=== PATIENT | female | born 1960 | race Caucasian/White ===

== ENCOUNTER 2020-02-01 10:57 | Day surgery (SDC) | payer MEDICARE, OTHER ==
[~2020-02-01] VITALS: Ht 170.2 cm; Wt 80.0 kg
[~2020-02-01 10:57] MED LIST: ALENDRONATE SOD70 MG PO; CALCIUM600 MG PO; CEFDINIR300 MG PO; DOXEPIN HCL100 MG PO; FEOSOL325 MG PO; FOLIC ACID1 MG PO; FUROSEMIDE40 MG PO; GALZIN50 MG PO; LEVOTHYROXINE112 MCG PO; LIOTHYRONINE SO5 MCG PO; MAGNESIUM400 MG PO; POTASSIUM CHLO20 ME1 PO; PULMICORT FLEX90 MCG INH; SUPER B-50 COM1 EACH PO; VENTOLIN HFA18 GM INH; VITAMIN B-121000 MC3 PO; VITAMIN C500 MG PO; VITAMIN D3125 MC1 PO
--- NOTE | 2020-02-01 12:50 | NUR ---
02/01/20 1250 [place] ALERT AND AWAKE, HOB ELEVATED. DENIES C/O AT THIS TIME.
--- NOTE | 2020-02-08 16:39 | PATH ---
[facility] [address] [facility] [place], [place] [address] Signed THIS IS AN ADDENDUM REPORT SPECIMEN(S): A BONE MARROW - CORE SPECIMEN(S): B BONE MARROW - ASPIRATION SPECIMEN(S): C COMPREHENSIVE FLOW CYTOMETRY ONLY, BM EDTA ASP CLINICAL HISTORY: 59-year-old female with history of hypoplastic anemia, chronic kidney disease, gastric bypass. Evaluate nutritional deficiency vs. MDS. D50.9 (iron deficiency anemia, unspecified), D61.9 (aplastic anemia, unspecified) DIAGNOSIS SUMMARY: A. Peripheral blood - Normochromic normocytic anemia. B. Bone marrow, left, aspiration and core biopsy: - Normocellular bone marrow with dysmegakaryopoiesis. - Decreased storage iron. - Negative for reticulin fibrosis. - See Diagnostic Comment. DIAGNOSTIC COMMENT: Evaluation of this bone marrow specimen reveals a normocellular bone marrow with an estimated overall cellularity of 40%. Megakaryocytes are mildly increased and include frequent small, hypolobated, and monolobated forms. There is no increase in blasts, and flow cytometry also detected no increase in blasts or abnormal lymphoid populations. Although myelodysplasia is a possibility, other considerations for this patient's anemia include nutritional deficiencies, infection, drug/toxin effect, and immune disorders. The iron stains show decreased storage iron, and correlation with iron studies is suggested. Cytogenetic analysis and MDS FISH analysis are pending, and the results will be issued by addendum. AIC:slh:smn:C2NR PERIPHERAL BLOOD: HEMOGRAM ([facility], 02/01/2020): WBC 8.6 K/uL, RBC 3.05 M/uL, HGB 9.1 g/dL, HCT 29.1%, MCV 95.3 fL, MCH 30 pg, MCHC 31 g/dL, RDW 17.2%, PLT 285 K/uL. MANUAL DIFFERENTIAL COUNT: Segmented neutrophils 61%, band neutrophils 2%, lymphocytes 22%, monocytes 14%, basophils 1%. PATIENT NAME: DEVORAH MCDERMOTT PATHOLOGY DATE OF : 56 REPORT #: [id number] PHYSICIAN: THOMAS PATHOLOGY PCP: SANTHOSH DAS REPORT IS CONFIDENTIAL AND NOT TO BE RELEASED WITHOUT AUTHORIZATION [facility] [address] [facility] [place], [place] [address] Signed The red blood cells are decreased in number and are normochromic and normocytic with anisocytosis. Scattered macrocytes, ovalocytes, microcytes, and a few target cells are identified. The white blood cells are present in normal number and are morphologically unremarkable. Circulating blasts are not identified. Platelets are present in normal number and morphology. BONE MARROW: BONE MARROW ASPIRATE SMEARS: The aspirate smears contain multiple cellular particles for evaluation. The erythroid precursors mature normoblastically with rare nuclear irregularity. The granulocytic precursors mature to segmented forms without dyspoiesis, and blasts are not increased. Megakaryocytes demonstrate variable morphology and include frequent small forms. Hypolobated and monolobated megakaryocytes are increased. BONE MARROW DIFFERENTIAL COUNT: Promyelocytes 2%, myelocytes 18%, metamyelocytes 16%, band neutrophils 14%, segmented neutrophils 11%, monocytes 5%, eosinophils 3%, lymphocytes 4%, plasma cells 2%, erythroid precursors 25%, zfpuwdl-lc-paaobnozy ratio 2.8:1. BONE MARROW CORE BIOPSY/ASPIRATE CELL BLOCK: The core biopsy reveals variable cellularity ranging from 20-60% and an estimated overall cellularity of 40%. The megakaryocytes show variable morphology and include scattered small and hypolobated and monolobated forms. The clot section contains similar particles in a background of blood clot. SPECIAL STAINS: - Iron (aspirate smear): Decreased storage iron, grade 0-1 of 4; negative for ring sideroblasts. - Iron (block B1): Negative. - Reticulin (block A1): Negative for reticulin fibrosis. The special stain controls react appropriately. IMMUNOHISTOCHEMICAL STAINS (block A1): - CD117: Scattered positive cells. - CD71: Highlights erythroid precursors with preserved colony architecture. - Myeloperoxidase: Many granulocytic precursors positive. - Factor VIII: Highlights mildly increased megakaryocytes with focal clustering and frequent small forms. AIC:slh:smn FLOW CYTOMETRY: Bone marrow, flow cytometry: - No increase in EZ92-fzcdhfkk blasts. PATIENT NAME: DEVORAH MCDERMOTT PATHOLOGY DATE OF : 56 REPORT #: [id number] PHYSICIAN: THOMAS PATHOLOGY PCP: SANTHOSH DAS REPORT IS CONFIDENTIAL AND NOT TO BE RELEASED WITHOUT AUTHORIZATION [address] [address] Signed - No monoclonal B-cell or aberrant T-cell population identified. - See Comment. COMMENT: Flow cytometry of this bone marrow specimen reveals no increase in CW09-zoixtovu blasts or immunophenotypic evidence of a non-Hodgkin lymphoid neoplasm. Final interpretation of these results requires correlation with morphologic and clinical findings. [facility] FLOW CYTOMETRY ANALYSIS: FLOW DIFFERENTIAL (% Total CD45 vs. SSC gating): Myeloid 75%; Lymphoid 10%; Monocyte 3%; Dim CD45/Blast: 1.7%. Cell Count: 6.6 x 10*3/uL. POPULATION ANALYSIS: BLASTS: Analysis of the dim CD45 gate demonstrates 1.6% myeloblasts by CD34/CD117. 0.7% hematogones are detected. LYMPHOID CELLS: The lymphocyte gate comprises 10% of total events and includes 77% T-cells with a CD4:CD8 ratio of 1.7:1 and normal rees T-cell antigen expression. 12% of lymphocytes are polyclonal B-cells with a kappa:lambda ratio of 1.6:1. The remainders are NK-cells. MYELOID CELLS: The myeloid population comprises 75% of the total events. No aberrant immunophenotypic expression is detected. MONOCYTES: The monocyte population comprises 3% of the total events. Monocytes are not increased. No aberrant immunophenotypic expression is detected. PLASMA CELLS: 0.9% plasma cells are detected in the screening gate neg-dimCD45/CD38. Plasma cells are CD45 dim and positive for CD19. ANTIBODIES USED: KAPPA, LAMBDA, CD20, CD10, CD19, CD23, CD38, FMC7, CD16, CD56, CD8, CD5, CD2, CD4, CD7, CD3, CD14, CD33, CD13, HLADR, CD34, CD117, CD15, CD45. TOTAL ANTIBODIES USED: 24. JNB FINAL DIAGNOSIS PERFORMED BY: Jesusita Horvath MD, Pathologist Feb 02 2020 1:41PM CYTOGENETICS: Pending, to be reported by addendum. FISH ANALYSIS: Pending, to be reported by addendum. GROSS DESCRIPTION: A. The specimen, labeled "Maribel, bone core," is received in formalin and consists of a single weldon, trabecular bone core fragment measuring 2.7 cm in PATIENT NAME: DEVORAH MCDERMOTT PATHOLOGY DATE OF : 56 REPORT #: [id number] PHYSICIAN: THOMAS PATHOLOGY PCP: SANTHOSH DAS REPORT IS CONFIDENTIAL AND NOT TO BE RELEASED WITHOUT AUTHORIZATION [facility] [address] [place], [place] [address] Signed greatest dimension. It is submitted in cassette (A1) following decalcification in Immunocal for 1.5 hours. B. The specimen, labeled "Maribel, clot," is received in formalin and consists of a 1.3 x 1.2 x 0.1 cm aggregate of blood clot. It is submitted entirely in cassette (B1). TN (under the direct supervision of a pathologist) The Gross Description was prepared using a voice recognition system. The report was reviewed for accuracy; however, sound-alike word errors, addition and/or deletions may occur. If there is any question about this report, please contact Client Services. ADDITIONAL NOTES: This test was developed and its performance characteristics determined by [facility]. It has not been cleared or approved by the US Food and Drug Administration. The FDA does not require this test to go through premarket FDA review. This test is used for clinical purposes. It should not be regarded as investigational or for research. This laboratory is certified under the Clinical Laboratory Improvement Amendments (CLIA) as qualified to perform high complexity clinical laboratory testing. Immunohistochemical and/or in situ hybridization studies were performed on this case with the appropriate positive controls that react as expected. This test was developed and its performance characteristics determined by [facility]. It has not been cleared or approved by the U.S. Food and Drug Administration. The FDA has determined that such clearance or approval is not necessary. This test is used for clinical purposes. It should not be regarded as investigational or for research. [facility] is certified under the Clinical Laboratory Improvement Amendments of 1988 (CLIA) as qualified to perform high complexity clinical laboratory testing. In this case, certain antibodies were performed by both immunohistochemistry and flow cytometry analysis because flow cytometry analysis did not fully explain all the light microscopic findings. Immunohistochemistry aided in the analysis. Both methods are deemed medically necessary in this case. PERFORMING LABORATORY: The technical component of flow cytometry was performed by [facility], [address] [place] [address] (Inspector Missile: Saulo Farris D.O.; CLIA#: [id number]). PATIENT NAME: DEVORAH MCDERMOTT PATHOLOGY DATE OF : 56 REPORT #: [id number] PHYSICIAN: THOMAS ANGELES PCP: SANTHOSH DAS REPORT IS CONFIDENTIAL AND NOT TO BE RELEASED WITHOUT AUTHORIZATION [address] [address] Signed Professional interpretation was performed by [facility], [facility], [address] [place] [place] [address] (Inspector Missile: Marino Richards M.D.; CLIA#: [id number]). The technical component was performed by [facility], [address] [place] [address] (Inspector Missile: Saulo Farris D.O.; CLIA#: [id number]). Professional interpretation was performed by [facility], [facility], [address] [place] [address] (Inspector Missile: Marino Richards M.D.; CLIA#: [id number]). IMAGES: [id number]: [id number] A: [id number] REASON FOR ADDENDUM: To add results of additional testing. Bone marrow aspirate, FISH (fluorescence in situ hybridization) Result: Normal (MDS panel) Interpretation: - These findings reveal no evidence of an aberrant cell clone with gains or losses of chromosomes 5q, 7q, 8, 17p and 20q at the sensitivity level of this analysis. - In order to rule out the presence of loss of heterozygosity regions (CHARO/UPD) or small deletions of 5q, SNP microarray analysis may be considered (please contact [facility] for add-on testing). - Clinical and hematopathologic correlation is required. Interphase FISH (fluorescence in situ hybridization) was performed to assess this specimen for the presence of cytogenetic aberrations in the non-dividing cell population. Hybridization was performed using the EGR1/5p15.31 (chromosome 5), 7q22/7q31 (chromosome 7), D8Z2 (chromosome 8), TP53/D17Z1 (17p), and [id number] (20q) probe sets to assess this sample for the presence of monosomy 5 and 7, deletion of 5q, 7q, 17p or 20q and trisomy 8, all common cytogenetic aberrations in patients with myeloid diseases. A total of 200 interphase cells were analyzed for each probe; the analyses fell within normal limits for this specimen type. 02/06/20 12:15 FISH Analysis Summary: Number of Cells Analyzed: 200 Cells Analyzed: Interphase PATIENT NAME: DEVORAH MCDERMOTT PATHOLOGY DATE OF : 56 REPORT #: [id number] PHYSICIAN: THOMAS ANGELES PCP: SANTHOSH DAS REPORT IS CONFIDENTIAL AND NOT TO BE RELEASED WITHOUT AUTHORIZATION [facility] [address] [place] [address] [place], [place] [address] Signed Probes Utilized: EGR1,5p15.31, P2F834,I2V6524, X66E700/MYBL2+D8Z2, TP53-P Source and Lot Number: [employer], [id number], [id number], [id number], [id number] Control Probe Utilized: database The technical and professional components of the FISH study were performed at [facility]. ([place], [place], case #[id number]). Detailed report is kept on file. To add results of additional testing. Bone marrow aspirate, CYTOGENETIC ANALYSIS Result: 46,XX[20] Normal female karyotype Interpretation: Twenty normal cells were observed. There was no evidence of any chromosome abnormality within the limits of this study. Cytogenetic Analysis Summary: Number of Cells Imaged and Analyzed: 20 Number of Cultures used for Analysis: 2 Number of Karyograms: 5 Banding Level: 350-375 Extra Cells Analyzed /Scored: 0 Banding Method: GTW/G The technical and professional components of the cytogenetics analysis were performed at [facility]. ([place], [place], case #[id number]). Detailed report is kept on file. Diagnostician: Jesusita Horvath MD Pathologist Electronically Signed 02/08/2020 Copies: ~ PATIENT NAME: DEVORAH MCDERMOTT PATHOLOGY DATE OF : 56 REPORT #: [id number] PHYSICIAN: THOMAS PATHOLOGY PCP: SANTHOSH DAS REPORT IS CONFIDENTIAL AND NOT TO BE RELEASED WITHOUT AUTHORIZATION
== END 2020-02-01 13:16 | disposition home or self-care (01) ==
LOC: OPS 10:57 → DS 10:57 → OPS 12:00 → DS 12:00 → OPS 13:16
PROVIDERS: ATTEND Specialist
PROC: 079T3ZX Drainage of Bone Marrow, Percutaneous Approach, Diagnostic (ICD-10-PCS; 2020-02-01)
PROC: 07DR3ZX Extraction of Iliac Bone Marrow, Percutaneous Approach, Diagnostic (ICD-10-PCS; principal; 2020-02-01 12:00)
DX: D46.9 Myelodysplastic syndrome, unspecified (principal); D50.9 Iron deficiency anemia, unspecified; E03.9 Hypothyroidism, unspecified; E55.9 Vitamin D deficiency, unspecified; G47.00 Insomnia, unspecified; F32.9 Major depressive disorder, single episode, unspecified; M81.0 Age-related osteoporosis without current pathological fracture; D61.9 Aplastic anemia, unspecified; Z98.84 Bariatric surgery status
CPT/HCPCS: 80053; 80500; 82525; 82668; 82728; 83540; 83615; 84238; 84466; 85025; 85045; 88184; 88185; 88305; 88311; 88313; 88341; 88342; 99153; G0500; J2250; J3010

== ENCOUNTER 2020-11-14 14:31 | Emergency (ER) | payer MEDICARE, OTHER ==
[~2020-11-14] VITALS: Ht 170.2 cm; Wt 74.4 kg
--- OUTSIDE RECORDS SUMMARY | 2020-11-14 14:44 | XMS ---
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 Care History Medical/Surgical 08/02/2019 [facility] - Patient is currently established with [facility]. If patient is seen in the ED during business hours. Please contact CHWs at [facility]. - Care Recommendation: If this patient has had 5 or more Emergency Department visits in the last 12 months.\T\nbsp; Patient will require education on the scope and purpose of the ED as an acute care provider not a Primary Care Provider and should not be utilized for chronic conditions.\T\nbsp; These are guidelines and the provider should exercise clinical judgment when providing care. 08/02/2019 [facility] Patient came into [facility] In [facility] for diagnosis; assessed by VIOLA Degroot, and sent to ED for further evaluation. [place] VISIT COUNT (12 MO.) 1 GARETH Perez TOTAL 1 NOTE: Visits indicate total known visits. ED/C VISIT TRACKING (12 MO.) 11/14/2020 14:32 [facility] [place] TYPE: Emergency COMPLAINT: - FLU SYMPTOMS, HEADACHE, DIZZY, NO TASTE/SMELL INPATIENT VISIT TRACKING (12 MO.) No inpatient visits to display in this time frame [email or web address]
== END 2020-11-14 17:38 | disposition home or self-care (01) ==
LOC: ED 14:31
DX: U07.1 COVID-19 (principal); J12.82 Pneumonia due to coronavirus disease 2019; E03.9 Hypothyroidism, unspecified; D64.9 Anemia, unspecified; Z88.0 Allergy status to penicillin; Z79.899 Other long term (current) drug therapy
CPT/HCPCS: 71045; 80053; 85025; 99285-25; M0243; Q0244

== ENCOUNTER 2020-11-16 14:15 | Inpatient (IN) | payer MEDICARE, OTHER ==
[~2020-11-16] VITALS: Ht 170.2 cm; Wt 77.6 kg
--- OUTSIDE RECORDS SUMMARY | 2020-11-16 14:22 | XMS ---
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 Events No recent Security Events currently on file CRITERIA MET - [facility] - 2 Visits in 30 Days - [facility] - Has Care Guidelines CARE PROVIDERS AFSIHN MARY Internal Medicine 08/02/2019-Current PHONE: [phone] CHANDLER DAS [facility] Current PHONE: [phone] Lazaro has no Care Guidelines for this patient. Care History Medical/Surgical 08/02/2019 [facility] - Patient is currently established with [facility]. If patient is seen in the ED during business hours. Please contact CHWs at [facility]. - Care Recommendation: If this [...] exercise clinical judgment when providing care. 08/02/2019 [facility] Patient came into [facility] for diagnosis; assessed by VIOLA Degroot, and sent to ED for further evaluation. [place] VISIT COUNT (12 MO.) 2 GARETH Perez TOTAL 2 NOTE: Visits indicate total known visits. ED/UCC VISIT TRACKING (12 MO.) 11/16/2020 14:15 [facility] [place] TYPE: Emergency COMPLAINT: - WEAKNESS 11/14/2020 14:[address] [facility] [place] TYPE: Emergency COMPLAINT: - FLU SYMPTOMS, HEADACHE, DIZZY, NO TASTE/SMELL INPATIENT VISIT TRACKING (12 MO.) No inpatient visits to display in this time frame [id number]
--- NOTE | 2020-11-16 20:31 | NUR ---
coop with admit questions and assessment. pt arrived at 1910, alert, oriented and coop. sob w exertion noted. was on 4LNC on admit. on 2LNC currently, sats 93%, lungs coarse and crackly, 3sl patent. bruisies both upper and lower arms from previous fall, otherwise intact skin, trace edema to ankles bilat. pleasant and coop. took hs meds w/o problems. proning position info given and pt turned and tried them for comfort, toleratd well. will give IS, tele#[address] oriented to room
--- NOTE | 2020-11-16 22:30 | NUR ---
resting, O2 2L NC, no distress noted, cpox 94%, call light and fluids at bedside
--- NOTE | 2020-11-17 00:10 | NUR ---
resting, hob elevated to comofrt, O2 in place, cpox 93%, no distress, call light and lfuids at bedside, legs elevated with pillows, cont on airborne isolation
--- NOTE | 2020-11-17 03:18 | NUR ---
up to bsc, desatted to low 80%, O2 increased to 10L, voided large amounts of urine, back to bed, increased resp rate, it took a few minutes to recuperate , O2 dropped to 4L, sats 89-90% as per tele#4, IS return demonstration to 500. proning on her abd,, moist non productive cough , declines cough syrup
--- NOTE | 2020-11-17 04:35 | NUR ---
pt has slept this shift, was on 2L NC, increased to 4L nc as she desatted when up to bsc, tele/cpox#4 sats 95%, pt given proning information and is laying on her left side, IS at bedside, instructins given and return demonstratin done. moist productive cough present at times.denies need for cough syrup, tolerating liquids well, no emesis. bruised arms from previous falls. SBA, was very anxious and worried at begining of shift due to being sick with Covid too. alert and oriented, cooperative on Airborne isolation precautions
--- NOTE | 2020-11-17 06:39 | NUR ---
tele#4,sats 91-95%, O2 2LNC.turns and repositions self, no c/o pain or sob, tolerating liquids well
--- NOTE | 2020-11-17 07:21 | NUR ---
REPORT RECEIVED FROM ASA NIX. PT RESTING IN BED ON RIGHT SIDE, SUPPORTED WITH PILLOWS. OXGYEN SATURATION NOTED TO BE 84-86% ON 4L O2 BY RI. THIS RN TO ROOM AND INCREASES OXGYEN TO 6L O2 BY RI WIHT OXGYEN STAURTIONS RECOVERING TO 92%. PT DENIES PAIN AND NAUSEA. NO ADDITIONAL REQUESTS OR COMLAINTS. CALL VICKI JOHN. BED RAILS UP.
--- NOTE | 2020-11-17 08:56 | NUR ---
MORNING ASSESSMENT AND MEDICATION DUE. PT SITTING UP IN BED FINISHING BREAKFAST, PT REPORTS SHE CAN TASTE "SALTY NAVARRO." BUT OTHERWISE STATES HER SENSE OF TASTE AND SMELL REMAIN ABSENT. PT REMAINS ON 6L O2 BY NC WITH OXGYEN SATURATIONS 89-91% WHILE RESTING. PT DENIES PAIN AND NAUSEA. IVs ASSESSED. LEFT AC IV DC'D THREE IVS ARE NOT NEEDED AND THIS ONE IS LEAKING AND PAINFUL WITH FLUSH. GAUZE AND COBAN APPLIED. RIGHT HAND AND FORARM IVs WNL, NO S/S PHLEBITIS NOTED, SALINE LOCKED WITH ALCOHOL CAP APPLIED. STAND BY ASSIST UP TO BEDSIDE COMODE. PT REPORTS DIZZINESS WITH ACTIVITY AND FEELINGS OF "LIGHTHEADEDNESS." OXYGEN SATURATIONS DROP TO 70'S WITH ACTIVITY ON 6L O2 BY NC. PT INCREASED TO 16L O2 BY HIGH FLOW NC WITH HUMIDIFICATION OXGYEN SATURATIONS CLIMB TO 88%. PT VOIDS 500ML CLEAR YELLOW URINE WITHOUT ISSUE, PERFORMS SELF BUDDY CARE BUT STATES SHE IS TOO EXHAUSTED TO GET UP TO CHAIR. STAND BY ASSIST BACK TO BED. OXYGEN SATURATIONS RECOVER TO 100% ON 16L AFTER 10 MINUTES. PT WEANED BACK TO 6L O2 BY NC. LUNG SOUNDS CLEAR IN UPPER LOBES, CORSE IN BASES. PT DEMONSTRATES USE OF I.S. REACHING 1000ML. X5. PRONING EDUCATION DONE WITH PT AND PT VERBALIZES UNDERSTANDING BUT DECLINES TIME ON HER STOMACH. PT AGREES TO LYE ON LEFT SIDE, POSITIONED AND SUPPORTED WITH PILLOWS. OXGYEN SATURATIONS 89-92% ON 6L O2 BY NC. PT DENIES DIARRHEA. VITAL SIGNS STABLE. NO ADDITIONAL REQUESTS OR COMPLAINTS. CALL LIGHT WITHIN REACH. BED RAILS UP.
--- NOTE | 2020-11-17 09:35 | NUR ---
VITALS SIGNS TAKEN. BLOOD PRESSURE NOTED TO BE LOW. PT REPORTS SHE "ALWAYS HAVE A LOW BLOOD PRESSURE." UPDATED. OXGYEN SATURATIONS. 97-100% ON 6L O2 BY NC WHILE PT IS RESTING ON LEFT SIDE. OXGYEN WEANED TO 4L O2 BY NC WITH OXGYEN SATURATIONS MAINTAINING ABOVE 90%. PT DENIES ADDITIONAL REQUESTS OR COMPLAINTS. CALL LIGHT WIHTIN REACH. BED RAILS UP.
[2020-11-17] MEDS ORDERED: EUTHYROX125 MCG PO (10:07)
--- NOTE | 2020-11-17 11:15 | NUR ---
THIS RN TO ROOM TO CHECK ON PT. PT RESTING ON LEFT SIDE, SUPPORTED WITH PILLOWS, WITH EYES CLOSED. RESPIRATIONS EVEN AND UNLABORED. OXGYEN SATURATIONS 92% ON 3L O2 BY NC. BED RAILS UP. CALL LIGHT WITHIN REACH.
--- NOTE | 2020-11-17 12:10 | NUR ---
OXYGEN SATURATIONS DROPPING TO 84%. THIS RN TO ROOM TO CHECK ON PT. PT MOVING SELF IN BED. OXYGEN INCREASED BACK TO 6L O2 BY NV FOR REPOSTIONING AND ACTIVITY. PT POSITIONED TO SEMIFOWLER WITH HEAD OF BED ELEVATED TO 45 DEGREES. PT EATING LUNCH. PT ENCORUAGED TO GET UP TO CHAIR, DECLINES AT THIS TIME REPORTING DIZZINESS. MD AWARE OF BLOOD PRESSURE, NO NEW ORDES AT THIS TIME. OXGYEN SATUARTIONS RECOVER TO 89-93% ON 6L O2 BY NV. NO ADDITIONAL REQUESTS OR COMPLAINTS. REYNOLD LIGHT WITHIN REACH. BED RAILS UP.
--- NOTE | 2020-11-17 13:50 | NUR ---
THIS RN TO ROOM TO CHECK ON PT. PT UP IN ROOM DOING EXERCISES IN ROOM. OXYGEN SATURATION REMAINS 90-95% ON 4L O2 BY NC WITH ACTIVITIES. PT REPORTS "FEELING BETTER." PT UP FOR SHOWER WITH STAND BY ASSIST. AMADO WILSON, IN ROOM WITH PT TO CHANGE LINENS AND ASSIST NEEDED WITH SHOWER. PT REMAINS ON 4L O2 BY NC FOR ACTIVTY. NO ADDITIONAL REQUESTS OR COMLAINTS. CALL LIGHT WITHIN REACH.
--- NOTE | 2020-11-17 14:00 | NUR ---
AFTERNOON ASSESSMENT DUE. PT RESTING IN BED ON RIGHT SIDE. OXYGEN SET TO 8L O2 BY NC AND OXGYEN SATURATIONS 92-94%. PT DENIES PAIN AND NAUSEA. PT REPORTS ONGOING FEELINGS OF DIZZINESS. BLOOD PRESSURE REMAINS LOW. ORTHOSTATIC VITAL SIGNS ATTEMPTED, PT UNABLE TO STAND FOR 1 MINUTE, BECOMES DIZZY AND SWAYING ON FEET. PT PALE AND NOT RESPONDING TO PROMPTS NORMALLY. PT SITS BACK INTO BED. AND TAKES 10 MINUTES TO RECOVER. PT NOTED TO HAVE OXYGEN SATURATIONS IN THE 70'S WITH STANDING DESPIT OXGYEN BY HIGH FLOW NC AT 16L. PT RECOVERS AFTER 5 MINUTES OF SITTING. STAND BY ASSIST UP TO BEDSIDE COMODE. PT VOIDS 500ML DARK YELLOW URINE WITHOUT ISSUE. PT BACK TO BED. ASSESSMENT DONE. LUNG SOUNDS CLEAR. PT DEMONSTRATES USE OF I.S. REACHING 1000ML X5. PT ASSISTED INTO PRONE POSITION, SUPPORTED WITH PILLOWS, OXGYEN SATURATIONS CLIMB TO 100%. PT WEANED TO 4L O2 BY NC AND MAINTAINING OXGYEN SATURATIONS ABOVE 90%. IV FLUIDS STARTED. NO ADDITIONAL REQUESTS OR COMPLAINTS. CALL CARMINA JOHN. BED RAILS UP.
--- NOTE | 2020-11-17 14:55 | NUR ---
AFTERNOON ASSESSMENT DUE. PT FINISHED WITH SHOWER AND UP TO CHAIR. PT REMAINS ON 4L O2 BY NC WITH OXYGEN SATURATIONS 95-98%. PT DENIES PAIN AND NAUSEA. PT WEANED TO 2L O2 BY NC WHILE UP TO CHAIR AND IS MAINTAINING OXGYEN SATURATIONS ABOVE 90%. PT DEMONSTRATES USE OF I.S. REACHING 2500ML X5. PT REPORTS "I'M WORKING ON THIS ALL THE TIME." PT REPORTS HE FEELS BETTER THAN YESTERDAY WITH "MORE ENERGY" AND WITH "NEWTON, BETTER" BREATHING. LUNG SOUNDS CLEAR. PT WATCHING TV AND DENIES ADDITIONAL REQUESTS OR COMPLAINTS. PT REPORTS COUGH IS ALSO IMPROVING. NO ADDITIONAL REQUESTS OR COMPLAINTS. CALL LIGHT WITHIN REACH.
--- NOTE | 2020-11-17 15:38 | NUR ---
MEDICATION DUE AND ARRIVED FROM PHARAMCY. LR STOPPED. MEDICATION GIVEN WITH NORMAL SALINE. PTS OXGYEN SATURATION NOTED TO BE 79%. THIS RN TO ROOM. PT MOVING IN BED AND REPOSITIONING SELF TO SEMIFOWLER POSITION. HEAD OF BED ELEVATED TO 36 DEGREES. OXGYEN INCREASED TO 14L O2 BY NC TO MAINTAIN OXYGEN SATURATIONS ABOVE 90%. PT WATCHING TV. NO ADDITIONAL REQUESTS OR COMPLAINTS. CALL LIGHT WITHIN REACH. BED RAILS UP.
--- NOTE | 2020-11-17 16:07 | NUR ---
PUMP ALARMING, INFUSION AND FLUSH COMPLETE. IV ASSESSED, WNL. LR IF FLUID INFUSION RESTARTED. PT WEANED TO 10L O2 BY NC WITH OXYGEN SATURATIONS ABOVE 89%. PT DENIES ADDITIONAL REQUESTS OR COMPLAINTS. CALL LIGHT WITHIN RECH. BED RAILS UP. PT REMAINS IN SEMIFOWLER POSITION, WATCHING TV WITH HEAD OF BED ELEVATED TO 32 DEGREES.
--- NOTE | 2020-11-17 16:36 | NUR ---
PT HERE FOR COVID RELATED PNEUMONIA. 1 PERSON ASSIST UP TO BEDISIDE COMODE. PT UNABLE TO STAND WITHOUT EXTREME DESATURATIONS, DIZZINESS, COLAPSING BACK INTO BED. TOLERATES PIVOT TO BEDSIDE COMODE WITH 16L O2 BY NC MAINTAINING OXYGEN SATURATIONS FROM 86-90%. LONG RECOVERY TIMES ONCE BACK IN BED. PT ON 4-6L O2 BY NC WHEN RESTING IN SIDE LYING OR PRONE POSITION, 6-10L WHEN SITTING AND 16 WHEN UP TO BEDSIDE COMODE. HYPOTENSION CONTINUES, IV FLUIDS INFUSING FOR 500ML, WILL FINISH ~1999. PT VERY WEAK. REPORTS LOSS OF SENSE OF TASTE AND SMELL. DENIES DIARRHEA. CPOX IN PLACE. PT PARTICIPATING IN PRONING PROTOCOLS AND DEMONSTRATES USE OF I.S. PT VODING QUANTITY SUFFICIENT. PT USES CALL LIGHT AND MAKES NEEDS KNOWN.
--- NOTE | 2020-11-17 18:23 | NUR ---
THIS RN TO ROOM TO CHECK ON PT. PT RESTING IN BED WITH HEAD OF BED ELEVATED TO 45 DEGREES, TALKING WITH FRIEND ON PHONE. OXGYEN SATURATIONS 91% ON 10L O2 BY ASHWINI. NON REBREATHER PLACED AT BEDSIDE BY SANDIP BRAY. PT NOW SALINE LOCKED, PER DR. BURGOS'S ORDERS, BY SANDIP BRAY. PT ASSISTED UP TO BEDSIDE COMODE BY KATIE POP, NON REBREATHER AT 5L PLACED OVER NC DURING ACTIVITY/UP TO COMODE. PT MAINTAINS OXYGEN SATURATIONS 89-93%. KATIE CONTINUES WORKING WITH PT. PT DENIES ADDITIONAL REQUESTS OR COMPLAINTS AT THIS TIME. CALL LIGHT WITHIN REACH. KATIE AT BEDSIDE.
--- NOTE | 2020-11-17 18:44 | NUR ---
ELZBIETA, PTS , CALLED BY THIS RN FOR UPDATE ON PTS STATUS. ELZBIETA UPDATED ON PTS STATUS AND PLAN OF CARE. ELZBIETA VERBALIZES UNDERSTANDING AND STATES HIS QUESTIONS HAVE BEEN ANSWERED.
--- NOTE | 2020-11-17 19:10 | NUR ---
REPORT RECEIVED FROM ASA BANEGAS. pt RESTING IN BED WITH 10 L OXYGEN BY HIGH FLOW NC, SPO2 97%.
--- NOTE | 2020-11-17 20:15 | NUR ---
IN ROOM TO CHANGE TELE BATTERY, pt AWAKE AND RESTING IN BED, DENIES FURTHER NEEDS. CALL LIGHT IN REACH.
--- NOTE | 2020-11-17 21:35 | NUR ---
pt RESTING IN BED. AWAKENS TO VOICE. ASSESSMENT COMPLETE. 10L OXYGEN BY HIGH FLOW NC IN PLACE. pt DENIES SOB. DENIES TOILETING NEEDS. ICE WATER REFILLED AND IN REACH. ASSISTED pt TO REPOSITION IN BED. NO ADDITIONAL REQUESTS. CALL LIGHT IN REACH.
--- NOTE | 2020-11-18 00:09 | NUR ---
CHECKED ON pt. LYING IN BED ON LEFT SIDE. 10L OXYGEN BY HIGH FLOW NC IN PLACE. SPO2 96%. LIGHTS TURNED OFF IN ROOM AT THIS TIME.
--- NOTE | 2020-11-18 02:30 | NUR ---
pt RESTING IN BED. EYES CLOSED. NO DISTRESS NOTED. SPO2 93% WITH 10 L OXYGEN BY OXYMASK IN PLACE.
--- NOTE | 2020-11-18 03:48 | NUR ---
CHECKED ON pt. LYING IN BED ON BACK, SLIGHTLY TO LEFT SIDE. SPO2 92% WITH 10 L OXYGEN BY HIGH FLOW NC ON. LIGHTS OFF IN ROOM. BREATHING IS EQUAL AND UNLABORED.
--- NOTE | 2020-11-18 04:57 | NUR ---
CALL LIGHT ANSWERED. pt UP TO BSC WITH 1PA FOR VOID. AFTER pt TO BSC SPO2 NOTED TO DROP TO 90%, pt DOES NOT C/O SOB. NON-REBREATHER MASK APPLIED AT MAX FLOW. SPO2 DROPS TO 78% RN APPLIES. pt DRIFTS TO SIDE OF BSC. RN SERVANDO IN ROOM. SPO2 INCREASES TO 100%. WITH NON-REBREATHER AND HIGH FLOW NC IN PLACE. pt POSITIONED TO RIGHT SIDE WITH PILLOW BEHIND BACK. SPO2 97% WITH HIGH FLOW NC ONLY. ASSESSMENT COMPLETE. pt COUGHING. COARSE CRACKLES RLL. PRN COUGH MEDICATION ADMINISTERED. ICE WATER PROVIDED. CALL LIGHT IN REACH.
--- NOTE | 2020-11-18 07:00 | NUR ---
pt AWAKE WHEN RN ENTERS ROOM, LYING ON BACK, SLIGHTLY ON RIGHT SIDE. SPO2 95%. TELE BATTERY REPLACED. 10L OXYGEN BY HIGH FLOW NC ON. SCHEDULED MEDICATION ADMINISTERED. pt DENIES TOILETING NEEDS. NO REQUESTS. CALL LIGHT IN REACH.
--- NOTE | 2020-11-18 07:23 | NUR ---
REPORT RECEIVED FROM ASA PERSON. PT RESTING ON LEFT SIDE WITH EYES CLOSED, RESPIRATIONS EVEN AND UNALBORED. PT SUPPORTED WITH PILLOWS. OXGYEN SATURATIONS 94% ON 10L O2 BY NC, FLUCUATING GREATLY WITH ANY PT MOVEMENT, RANGES FROM 89-98%. BED RAILS UP. CALL LIGHT WITHIN REACH. PT ALLOWED TO REST.
--- NOTE | 2020-11-18 07:42 | NUR ---
MORNING ASSESSMENT AND MEDICATION DUE. PT AWAKE AND RESTING IN BED ON BACK. OXGYEN SATURATIONS DROPW TO 85% WITH PT LYING ON BACK. EDUCATION DONE WITH PT REGARDING POSITIONING. PT VERBALIZES UNDERSTANDING BUT STATES SHE WANTS TO "STAY THIS WAY FOR A WHILE." OXGYEN INCREASED TO 16L O2 BY NC TO MAINTAIN OXGYEN SATURATIONS ABOVE 90%. PT REPORTS "MY BONES HURT" REPORTING GENERAZLIED BODY ACHES AT 9/10, SEE MAR FOR MEDICATION GIVEN. PT ORIENTED TO ALL, FOGGY THINKING NOTED, PT SLOW TO ANSWER QUESTIONS. GENERALIZED WEAKNESS EVIDENT. SOFT MONUMENT ERECTOR STRENGTH. PT ABLE TO REPOSITION SELF WITH 1 PERSON ASSIST, OXGYEN SATURATIONS DROP TO 70'S WITH ANY MOVEMENT. NON REBREATHER AT 16L PLACED ON PT DURING MOVEMENT/REPOSITIONING. LUNG SOUNDS CLEAR BUT FOR CRACKELS IN RIGHT LOWER LOBE. PT DEMONSTRATES USE I.S. REACHIN [id number]. COUGH INCREASE WITH I.S. USE. PT REPORTS PAIN WITH COUGH WELL. PT IN SEMI FOWERL POSITION FOR BREAKFAST WITH HEAD OF BED ELEVATED TO 58 DEGREES. PT REMAIN SON 16L O2 BY NC WHILE IN THIS POSITION TO MAINTAIN OXGYEN SATUARTIONS ABOVE 90%. RT TO BEDSDIE FOR EVALUATION. PT DENIES ADDITIONAL REQUESTS OR COMPLAINTS. CALL LIGHT WITHIN REACH. BED RAILS UP.
--- NOTE | 2020-11-18 09:04 | NUR ---
PATIENT IN BED RESTING. PATIENT STATES SHE IS VERY TIRED. IN ROOM TO ROUND ON PATIENT. VITALS DONE. CALL LIGHT IN REACH. NO FURTHER NEEDS AT THIS TIME.
--- NOTE | 2020-11-18 10:00 | NUR ---
THIS RN TO ROOM TO CHECK ON PT. PT RECENTLY UP TO BEDSIDE COMODE WITH AAS ADNGELO. THIS RN NOTED 79-84% OXGYEN SATURATIONS ON TELEMETRY MONITORING. PT WAS NOT WEARNING NON REBREATHER FOR ACTIVITY. PT REPORTS INCONTINANT URINATION. PT CONTINUEST TO REPORT 8/10 BODY ACHES BUT STATES "ITS ONLY SORE WHEN I MOVE." PT NOW IN PRONE POSITION WITH OXGYEN SATURATIOSN 90-96% ON 10L O2 BY NC. PT SUPPORTED WITH PILLOWS. PT DNIES ADDITIONAL REQUESTS OR COMPLAINTS. CALL LIGTH WITHIN REACH. BED RAILS UP.
--- NOTE | 2020-11-18 11:30 | NUR ---
THIS RN TO ROOM TO CHECK ON PT. OXGYEN SATRUATIONS AT 87% ON 8L O2 BY NC. PT REPORTS SHE JUST WOKE UP AND IS REPOSITIONING HER SELF FROM PRONE TO LYING ON RIGHT SIDE. PT RECOVERS TO 90'S% OXGYEN AFTER 2-3 MINUTES AND REMAINS ON 8L O2 BY NC. PT DENIES ADDITIONAL REQUETS OR COMPLAINTS. CALL LIGHT WITHIN REACH. BED RAILS UP.
--- NOTE | 2020-11-18 12:30 | NUR ---
LUNCH DELIVERED TO PT. PT REPOSITIONING SELF IN BED TO SITTING POSITION WITH HEAD OF BED ELEVATED TO 50 DEGREES FOR LUNCH. OXGYEN SATURATIONS DROP TO 85%. NON REBREATHER MASK (NRB) PLACED AT 16L AND PT RECOVERES TO 98%. ADDITIONAL EDUCATION DONE WITH PT REGARDING USING NON REBRETHER ANYTIME SHE NEEDS TO REPOSITION OR MOVE. PT VERBALIZES UNDERSANDING (REPEATIDLY FORGETTING THIS SHIFT). PT ASSISTED WITH OPENING PACAKGES FOR LUNCH, REPORTS SHE IS TOO TIRED TO OPEN PACKAGES HERSELF. FOGGY THINKING CONTINUES. PT ABLE TO TALK IN MORE COMPLETE SENTENCES AND APPEARS MORE ALERT, SLOW RESPONSES CONTINUE. PT REMAINS ON 8L O2 BY NC AT THIS TIME WHILE EATING WITH OXGYEN SATURATIONS ABOVE 90%. PT DENIES ADDITIONAL REQEUSTS OR COMPLAINTS. CALL LIGHT WITHIN REACH. BED RAILS UP.
--- NOTE | 2020-11-18 12:34 | NUR ---
PT ON PRECAUTIONS, WILL FOLLOW
--- NOTE | 2020-11-18 13:30 | NUR ---
THIS RN TO ROOM TO CHECK ON PT. PT RESTING ON LEFT SIDE WITH EYES CLOSED. RESPIRATIONS EVEN AND UNLABORED. OXYGEN SATURATIONS ABOVE 90% ON 12L O2 BY NC. BED RAILS UP. CALL LIGHT WITHIN REACH. PT ALLOWED TO REST.
--- NOTE | 2020-11-18 15:30 | NUR ---
AFTERNOON ASSESSMENT AND MEDICATION DUE. THIS RN TO ROOM. PT RESTING ON RIGHT SIDE WITH 12L O2 IN PLACE AND OXYGEN SATURATIONS OF 90-94%. PT DENIES NAUSEA. REPORTS BODY ACHES OF 5/10 "WHEN I MOVE." DENIES NEED FOR PAIN MEDICATION AT THIS TIME. IVS ASSESSE, WNL. RIGHT HAND IV FLUSHED, FUSHES WELL, NO S/S PHELBITIS NOTED. IV MEDICAITON STARTED. PT CONTINUES TO BE LETHARGIC AND SLOW TO RESPOND TO QUESTIONS. PT ORIENTED TO ALL AND ANSWERS QUESTIONS APPROPRATLY BUT REPORTS LOW ENERGY AND FEELINGS OF FATIGUE. THIS RN NOTES THAT PT HAS NOT VOIDED SINCE THIS MORNING. NON REBREATHER (NRB) PLACED OVER PTS NC TO HYPEROXYGENATE PRIOR TO GETTING OUT OF BED. PT ABLE TO MAINTAIN OXYGEN SATURATIONS ABOVE 88% WITH BOTH NC AND NRB IN PLACE. PT DENIES DIZZINESS WHEN UP TO COMODE STATING "I THINK THIS MASK HELPS." CONSULTED REGARDING KAUR CATHETER ORDER AND STATES OK NOT TO PLACE KAUR AT THIS TIME, PLACE ONLY IF NEEDED AND PT IS UNABLE TO GET OUT OF BED TO VOID. PT VOIDS 650ML WHEN UP TO COMODE. WILL ENCOUAGE PT TO VOID MORE FREQUENTLY. LUNG SOUNDS REMAIN CLEAR. RESPARITON RATE WNL WITH REST AND ACCELERATED WITH ACTIVITY. PT RECOVERS QUICKLY WITH REMINDERS TO CONCENTRATE ON HER BREATHING. PT DEMONSTRATES I.S. USE REACHING 500-750ML X5. INCREASED COUGH WITH I.S. USE. PT ASSISTED WITH REPOSITIONING TO LEFT SIDE, SUPPORTED WITH PILLOWS. OXGYEN REMAINS AT 12L O2 BY NC (NO NRB IN PLACE WITH REST). OXYGEN SATURATIONS 90-94%. NO ADDITIONAL REQUESTS OR COMPLAINTS. CALL LIGHT WITHIN REACH. BED RAILS UP.
--- NOTE | 2020-11-18 16:03 | NUR ---
PUMP ALARMING, INFUSION AND FLUSH COMPLETE. IV ASSESSED, WNL. SALINE LOCKED WITH ALCOHOL CAP APPLIED. PT CONTINUES RESTING ON LEFT SIDE. OXGYEN SATURATIONS ABOVE 90% ON 12L O2 BY NC. NO ADDITIONAL REQUESTS OR COMPLAINTS AT THIS TIME. DINNER ORDER PLACED. CALL LIGHT WITHIN REACH. BED RAILS UP.
--- NOTE | 2020-11-18 17:29 | NUR ---
THIS RN TO ROOM TO CHECK ON PT. OXGYEN SATURATIONS IN THE LOW 80'S. PT REPORTS SHE WAS JUST UP TO THE COMODE WITH ANOTHER MEMBER OF THE NURSING STAFF. PT REPORTS SHE FORGOT TO WEAR HER NONREBREATHER MASK WHILE UP. PT REMINDED TO ALWAYS WEAR HER NONREBREATHER WHEN DOING ACTIVITY. OXYGEN SATURATIONS RECOVER TO 90%'S AFTER 5 MINUTES. PTS SON, TWILA, ON PHONE, UPDATED BY THIS RN. TWILA VERBALIZES UNDERSTANDING OF PLAN OF CARE AND STATES HIS QUESTIONS HAVE BEEN ANSWERED. PT REMAINS ON 12L O2 BY SC AT THIS TIME. POSITIONED IN SEMIFOWERL POSITION FOR DINNER HEAD OF BED ELEVATED TO 37 DEGREES. PT DENIES ADDITIONAL REQUESTS OR COMPLAINTS. CALL LIGHT WITHIN REACH. BED RAILS UP.
--- NOTE | 2020-11-18 18:15 | NUR ---
THIS RN TO ROOM TO CHECK ON PT. PT RESTING IN BED, FINISHING DINNER. PT REMAINS ON 12L O2 BY NC WITH OXYGEN SATURATION OF 92%. PT DENIES REQUESTS OR COMPLAINTS. CALL LIGHT WITHIN REACH. BED RAILS UP.
--- NOTE | 2020-11-18 18:27 | NUR ---
PT HERE FOR COVID RELATED PNEUMONIA. PT UP WITH 1 PERSON ASSIST TO BEDSIDE COMODE THIS SHIFT, NEEDS NON REBREATHER (NRB) MASK IN PLACE AT 16L OVER NC DURING TIME UP TO COMODE. PT REPORTS NRB HELPS HER WHILE UP TO COMODE, NO DIZZINESS THIS SHIFT. PT TOLERATING REGULAR DIET WITH MINIMAL APPITTIE. BLOOD PRESSURES IMPROVING THIS SHIFT. PT REQUIRING INCREAED OXYGEN THIS SHIFT, NEEDING 12L O2 WHILE AT REST. PT PARTICIPATING IN PRONING PROTOCOL AND DEMONSTRATING USE OF I.S. CPOX MONITORING IN PLACE. PT VOIDING QUANTITY SUFFICIENT. PRN KAUR CATHETER ORDER PLACED, NOT NECESSARY THIS SHIFT. PT USES CALL LIGHT APPROPRIATLY AND MAKES NEEDS KNOWN.
--- NOTE | 2020-11-18 19:05 | NUR ---
REPORT RECEIVED FROM ASA BANEGAS. pt UP TO BSC AT THIS TIME. SPO2 98% WITH 12 L HIGH FLOW NC AND NON-REBREATHER ON OVER TOP AT MAX FLOW. MOLD CAPPER HELPER IN ROOM.
--- NOTE | 2020-11-18 19:30 | NUR ---
PT AWAKE IN ROOM. PT CALLED FOR BSC. PT STATED "IT WAS TOO UNCOMFORTABLE. I HAD TO DIG SOME OF IT OUT WITH MY HANDS SO THERE'S A LITTLE BLOOD." PT HAD SMALL FORMED BM WITH SMALL AMOUNT OF BLOOD IN COMMODE. ASA GRIFFIN NOTIFIED. PT NOW BACK IN BED. CALL LIGHT IN REACH. NO FURTHER NEEDS AT THIS TIME.
--- NOTE | 2020-11-18 20:28 | NUR ---
pt RESTING IN BED AWAKE. SPO2 WNL WITH 12L OXYGEN BY HIGH FLOW NC IN PLACE. VSS. ASSESSMENT COMPLETE. LUNG COARSE ON RIGHT SIDE. pt WITH CONGESTED COUGH. PRN COUGH MEDICATION ADMINISTERED. pt C/O 6/ GENERALIZED PAIN. PRN TYLENOL ADMINISTERED. pt ASSISTED TO REPOSITION HIGHER IN BED WITH TWO NURSING STAFF ASSIST. ENCOURAGED TO LIE PRONE OR SIDE LIE. LYING ON RIGHT SIDE. CALL LIGHT WITHIN REACH. ICE WATER PROVIDED.
--- NOTE | 2020-11-18 23:41 | NUR ---
pt RESTING IN BED ON BACK. SPO2 95% WITH 12L OXYGEN BY HIGH FLOW NC ON. LIGHTS OFF IN ROOM.
--- NOTE | 2020-11-19 01:51 | NUR ---
pt RESTING IN BED ON BACK. EYES CLOSED, BREATHING UNLABORED. LIGHTS OFF IN ROOM. NO DISTRESS NOTED. 12L OXYGEN BY HIGH FLOW NC ON. SPO2 92%.
--- NOTE | 2020-11-19 02:16 | NUR ---
pt SPO2 NOTED 78% WHILE pt ROLLING TO LEFT SIDE. SPO2 DOES NOT INCREASE ABOVE 82% AFTER SEVERAL MINUTES. RN IN ROOM. NON-REBREATHER WITH MAX O2 APPLIED OVER TOP OF NC WITH 12L OXYGEN. pt REPOSITIONED TO RIGHT SIDE. SPO2 REMAINS <88% WITHOUT NON-REBREATHER. TITRATED TO 14L OXYGEN BY HIGH FLOW NC. SPO2 INCREASES TO 91-92%. ICE WATER PROVIDED. PRN TYLENOL FOR GENERALIZED PAIN AND PRN COUGH MEDICAITON ADMINISTERED. pt WITH DRY COUGH. ASSESSMENT COMPLETE. CRACKLES AUSCULTATED RUL, RLL. CALL LIGHT WITHIN REACH.
--- NOTE | 2020-11-19 04:39 | NUR ---
CHECKED ON pt. RESTING IN BED ON BACK. BREATHING UNLABORED. 12L OXYGEN BY NC IN PLACE. LIGHTS OFF IN ROOM.
--- NOTE | 2020-11-19 05:39 | NUR ---
SPO2 NOT READING, IN pt ROOM, ADJUSTED ON FINGER. SPO2 WNL WITH 14L OXYGEN BY HIGH FLOW NC ON. SCHEDULED MEDICATION ADMINISTERED. pt DENIES TOILETING NEEDS. CALL LIGHT IN REACH. VSS. ICE WATER PROVIDED.
--- NOTE | 2020-11-19 07:27 | NUR ---
this rn received report from piedad lobo. pt up to commode with jennifer castellano.
--- NOTE | 2020-11-19 09:06 | NUR ---
this rn in pts room to give pt her morning meds. pt reports feeling tired and sore from her previous falls prior to admission. pt has no other concerns. marcella from rt in pts room to get an arterial blood gas from pt and to put pt on vapotherm at this time.
--- NOTE | 2020-11-19 12:30 | NUR ---
THIS RN IN PTS ROOM TO BRING PT HER LUNCH PT APPEARS TO HAVE BEEN RESTING COMFORTABLY AND PT STATES THAT SHE IS FEELING BETTER ON THE VAPOTHERM. PT REPOSITIONED TO BE ABLE TO EAT LUNCH SAFELY
--- NOTE | 2020-11-19 15:18 | NUR ---
PATIENT IN BED RESTING AT THIS TIME. VITALS AND I&O'S CHARTED. FRESH WATER GIVEN. CALL LIGHT IN REACH. NO FURHTER NEEDS AT THIS TIME.
--- NOTE | 2020-11-19 15:51 | NUR ---
SPOKE WITH PATIENT BY CELL FROM IN ROOM. PATIENT LIVES WITH . DRIVES. HAS FWW BUT DOES NOT USE OFTEN. DOES NOT WORK, IS DISABLED. DOES NOT THINK SHE IS WORRIED ON AFFORDING MEDS/FOOD/UTILITIES. PLANS TO RETURN HOME AT DISCHARGE. HARD TO UNDERSTAND AT TIMES DUE TO HF OXYGEN AND SOB. IF NEEDS OXYGEN AT HOME WOULD USE NORCO. CM WILL CONTINUE TO FOLLOW.
--- NOTE | 2020-11-19 16:00 | NUR ---
THIS RN IN PTS ROOM TO CHECK ON PT AND START MEDS. PT STATES THAT SHE IS DOING WELL AND APPEARS MORE ALERT THIS AFTERNOON AFTER BEING ON VAPOTHERM. PT REPORTS THAT SHE THINKS SHE NEEDS TO HAVE A BM. THIS RN HAD [employer] SBA ASSIST PT TO BED SIDE COMMODE DUE TO PT GETTING SLIGHT HYPOXIC THIS AM PRIOR TO USING VAPOTHERM AND NON-REBREATHER. PT ABLE TO GET TO BEDSIDE COMMODE, BUT WHILE SITTING ON COMMODE AND STRAINING TO HAVE A BM PT DESATED TO 79% ON 40L 80% FIO2, THIS RN PLACED PT ON NONREBREATHER ON TOP OF VAPOTHERM. PT REGAINED HER SATS TO MID 90%. PT BACK TO BED AND STATES THAT SHE NEEDS NOTHING FURTHER
--- NOTE | 2020-11-19 18:28 | NUR ---
PATIENT SITTING UP IN BED EATING DINNER. VITALS AND I&O'S CHARTED. FRESH ICE CHIPS GIVEN. CALL LIGHT IN REACH. NO FURTHER NEEDS AT THIS TIME,
--- NOTE | 2020-11-19 19:15 | NUR ---
REPORT RECEIVED FROM ASA VALDOVINOS. pt RESTING IN BED. SPO2 96% WITH VAPOTHERM ON, TELE CPOX ON.
--- NOTE | 2020-11-19 20:54 | NUR ---
pt RESTING IN BED AWAKE. RATES PAIN 2/10 IN THROAT "FEELS LIKE STUFF IS DRAINING". PRN TYLENOL ADMINISTERED. PRN COUGH MEDICATION ADMINISTERED. ASSESSMENT COMPLETE. CRACKLES AUSCULTATED RLL. SPO2 94% ON VAPOTHERM 40L 70% FIO2. KAUR EMPTIED, CARE AND EDUCATION COMPLETE. pt STATES DINNER WAS COLD. OFFERED TO WARM, pt REFUSES. CLEAR ENSURE PROVIDED AND pt DRINKING AT THIS TIME. CALL LIGHT IN REACH. ASSISTED TO REPOSITION TO RIGHT SIDE LYING POSITION. CALL LIGHT IN REACH.
--- NOTE | 2020-11-19 23:23 | NUR ---
SPO2 93% WITH VAPOTHERM IN PLACE. pt LYING ON BACK, SLIGHT TILT TO LEFT. LIGHTS OFF IN ROOM.
--- NOTE | 2020-11-20 02:02 | NUR ---
SPO2 91%, pt LYING IN BED ON BACK. VAPOTHERM ON.
--- NOTE | 2020-11-20 04:43 | NUR ---
IN pt ROOM TO CHECK ON pt. RESTING ON BACK WITH EYES CLOSED, BREATHING UNLABORED. SPO2 90% WITH VAPOTHERM ON.
--- NOTE | 2020-11-20 05:55 | NUR ---
pt RESTING IN BED. AWAKENS TO VOICE, SPO2 DROPS TO 80% WITH MOVEMENT IN BED, COUGHING. NON-REBREATHER APPLIED, SPO2 INCREASES TO WNL. VAPOTHERM 40L, 70% FIO2 ON. PRN COUGH MEDICATION ADMINISTERED. ASSESSMENT COMPLETE. CRACKLES RUL ON AUSCULTATION. KAUR EMPTIED. CALL LIGHT IN REACH.
--- NOTE | 2020-11-20 07:28 | NUR ---
this rn received report from piedad lobo. pt appears to be resting at this time with cpox in place.
--- NOTE | 2020-11-20 08:50 | NUR ---
THIS RN IN PTS ROOM TO GIVE MORNING MEDS. PT STATES THAT SHE IS FEELING TIRED TODAY AND HAS SOME DISCOMFORT URDER HER ARM PITS "WHERE MY PICKED ME UP OFF THE FLOOR" THIS RN PROVIDED PT WITH TYLENOL FOR DISCOMFORT AND ASSISTED PT TO REPOISTION IN BED.
--- NOTE | 2020-11-20 09:30 | NUR ---
THIS RN IN PTS ROOM PER PT REQUEST DUE TO PT NEEDING TO HAVE A BM. SHERMAN WILSON IN PTS ROOM TO ASSIST PT AND THIS RN. THIS RN PLACED PT ON THE NONREBREATHER TO ASSIST MAINTAINING SATS. PT DID DESAT TO 84% ON VAPOTHERM AND NONREBREATHER. PT STATED THAT SHE FELT THAT HER BM WAS STUCK. THIS RN INSPECTED AND NOTED THAT PT WAS GREATLY IMPACTED WITH POOP. THIS RN ASSISTED PT BACK TO BED AND MANUALLY DISIMPACTED PT GETTING A LARGE BM OUT- PT TOELRATED WELL. THIS RN DID NOTE BHAVNI RED BLOOD- PT NOTED THAT SHE HAS LARGE HEMOOROIDS AROUND HER RECTUM.
--- NOTE | 2020-11-20 09:52 | NUR ---
The RN said the patient is going to be using the bedpan instead of the BSC today so the patient's oxygen doesn't drop so low. Vitals, are done, I&Os are complete.BP was 86/52. MAP waas 60. RN will be notified.
--- NOTE | 2020-11-20 11:25 | NUR ---
THIS RN IN PTS ROOM TO CHECK ON PT. PT STATES THAT SHE IS TIRED BUT OTHERWISE DOING WELL, FEELS MUCH BETTER AFTER BEING MANUALLYDISEMPACTED. PT STATES NEEDING NOTHING ELSE AT THIS TIME
--- NOTE | 2020-11-20 14:52 | NUR ---
Vitals, I&Os are complete. Facility phone is not working when dialed. Meals were written down and will be ordered at the nurses station. Patient has had 285 ml of water. Patient has been encouraged to use call light. Call light is still in reach.
--- NOTE | 2020-11-20 16:00 | NUR ---
THIS RN IN PTS ROOM TO START REMDES, WHEN FLUSHING PTS IV IT STARTED LEAKING. THIS RN ATTEMPTED TWICE FOR AN IV, MARITZA BRAY ABLE TO GET 24G.
--- NOTE | 2020-11-20 17:30 | NUR ---
THIS RN TO START PTS REMDES. THIS RN TO SLOW THE RATE TO 100ML/HR FOR TOTAL OF 250ML DUE TO SMALLER GAUGE.
--- NOTE | 2020-11-20 18:06 | NUR ---
Patient is in bed with call light and has no requests at this time.
--- NOTE | 2020-11-20 19:41 | NUR ---
FINISHED GETTING REPORT FROM ASA VALDOVINOS. PATIENT RESTING QUIETLY IN BED WATCHING TV. CALL LIGHT IS IN REACH AND NO CURRENT CARE NEEDS.
--- NOTE | 2020-11-20 20:22 | NUR ---
pt RESTING IN BED AWAKE. KAUR CARE COMPLETE. KAUR EMPTIED. VS COMPLETE. SPO2 <90% WITH VAPOTHERM IN PLACE AT 40L, 70%, pt COUGHING. TITRATED TO 40L 80% FIO2 AFTER SEVERAL MINUTES WITH NON-REBREATHER WITH MAX O2 APPLIED OVER VAPOTHERM, SPO2 NOW 90%. PRIMARY RN NOTIFIED.
--- NOTE | 2020-11-20 21:30 | NUR ---
PATIENT'S VS ARE STABLE. PATIENT ON VAPOTHERM 40L/FIO2 80 O2 SATS 90%. PATIENT TOOK TYLENOL FOR ARREGUIN OF 8, HAD A TESSALON LUISITO FOR COUGH, AND MELATONIN FOR SLEEP. PATIENT REPOSITIONED TO HER RIGHT SIDE. ICE WATER REFILLED. LIGHTS TURNED DOWN AND CALL LIGHT IS IN REACH.
--- NOTE | 2020-11-21 00:01 | NUR ---
PATIENT RESTING QUIETLY SKIGHTLY ON HER LEFT SIDE, RESPIRATIONS ARE SHALLOW AND EVEN, O2 SAT=91% ON VAPOTHERM 40L/70 FOI2 70%. PATIENT HAS NO CURRENT CARE NEEDS AND CALL LIGHT IS IN REACH.
--- NOTE | 2020-11-21 01:38 | NUR ---
ASSISTED PATIENT IN TURNING UP HIGH ON HER RIGHT SIDE O2 SATS WERE DROPPING SHE HAD TURNED O HER BACK. VAPOTHERM REMAINS AT 40L/80% FIO2 AND O2 SATS=90%. LIGHTS TURNED DOWN AND CALL LIGHT IS IN REACH.
--- NOTE | 2020-11-21 04:00 | NUR ---
ASSISTED PATIENT TO TURN TO HER LEFT SIDE. VAPOTHERM STILL AT 40L/80% AND 02 SATS ARE 90%. SURGILUBE SWABBED TO PATIENT'S NOSTRILS FOR DRINESS AND NEW VAPOTHERM WATER BAG HUNG. PATIENT HAS NO OTHER NEEDS AT THIS TIME. CALL LIGHT IS IN REACH.
--- NOTE | 2020-11-21 05:30 | NUR ---
pt RESTING IN BED AWAKE RN ENTERS ROOM. STATES "I'VE BEEN AWAKE SINCE 3 AM, I'M HAVING CHEST PAIN". PRIMARY RN NOTIFIED AND IN ROOM. pt STATES IT "COULD BE FROM WHEN MY PICKED ME UP, BUT IT HASN'T HURT THIS CONSTANTLY WITH MOVEMENT". EKG COMPLETED BY RT KO. pt REPOSITIONED TO LEFT SIDE LYING POSITION SPO2 78% WITH MAX VAPOTHERM, NON-REBREATHER APPLIED OVER TOP AT 15L. OXYGEN NOW WNL, TITRATED BACK TO 40L, 80% FIO2, SPO2 93% ON CPOX. CALL LIGHT IN REACH.
--- NOTE | 2020-11-21 06:23 | NUR ---
ON MED/SURG. INFORMED THAT THE PATIENT HAD 10/10 CHEST PAIN AND AN EKG WAS DONE AND ON HIS DESK. PATIENT'S PAIN HAS DROPPED TO 6/10 AFTER SHE GOT TYLENOL. PATIENT SAYS SHE IS MUCH MORE COMFORTABLE. HAD NO NEW ORDERS FOR THIS NURSE AND PATIENT IS RESTING QUIETLY ON HER LEFT SIDE VAPOTHERM SETTINGS REMAIN THE SAME AND O2 SAT=94%. PATIENT HAS HER CALL LIGHT IN REACH AND SHE HAS NO CARE NEEDS AT THIS TIME.
--- NOTE | 2020-11-21 07:10 | NUR ---
SHIFT REPORT GIVEN TO ASA HOLLAND. PATIENT HAS NO STATUS CHANGES SINCE LAST NURSES NOTE.
--- NOTE | 2020-11-21 07:45 | NUR ---
REPORT RECEIVED FROM NIGHT RN AND PT. PT CARE RESUMED. PT IS ALERT AND ORIENTED. SHE STATES SHE IS EXHAUSTED. DENIES PAIN AND NAUSEA. SHE IS ON VAPOTHERM 40L, 100% FIO2 WITH 15L NONREBREATHER. DISCUSSED PRONING AND PT. AGREEABLE. PT. STATES SHE NEEDS TO HAVE A BOWEL MOVEMENT. SMEAR ON THE CHUX. PT. UP TO THE BEDSIDE COMMODE. 02 SAT. WAS 80%. PT. STATED SHE CANNOT GO AT THIS TIME. HELPED BACK TO BED. PT. ASSISTED WITH PRONING AND TAKEN OFF NONREBREATHER. 02 SAT INCREASED TO 100%. PT. AGREED TO PRONE FOR AT LEAST 45 MIN. IV SITE WNL AND FLUSHES. DISCUSSED POC AND MEDS. PT. LEFT RESTING WITH CALL LIGHT IN REACH.
--- NOTE | 2020-11-21 09:42 | NUR ---
Patient said she would like to order a snack instead of breakfast. She would like hot beef broth. This will be ordered. Call light is in reach.
--- NOTE | 2020-11-21 11:32 | NUR ---
PT. USED CALL LIGHT FOR SOB. ASSISTED PT. TO PRONING POSITION. O2 SAT INCREASED FROM 83% TO 97%. PT. LEFT WITH AUTO DETAILER IN THE ROOM.
--- NOTE | 2020-11-21 13:21 | NUR ---
Patient had a snack for breakfast, 50%. Patient has had 80% of lunch and 275 ml. Vitals, I&Os are done.
--- NOTE | 2020-11-21 14:00 | NUR ---
PT. ASSISTED WITH PRONING POSITION. LUNGS DIM. THROUGHOUT. SHE IS ON VAPOTHERM AT 40L, 100% FIO2. MIDLINE FLUSHES WELL AND HAS BLOOD RETURN. LEFT RESTING WITH PHONE AND CALL LIGHT IN REACH.
--- NOTE | 2020-11-21 14:30 | NUR ---
PT. IS UP TO THE BEDSIDE COMMODE WITH 2PA. PREOXYGENATED WITH VAPOTHERM AND NONREBREATHER AT 15L. PT. REQUESTS TO DIGITALLY DISIMPACT HERSELF. WITH GLOVES PT. REMOVED LARGE AMOUNTS OF HARDENED STOOL. STOOL IS BLOODY AND PT. STATES THIS HAPPENS AT HOME WHEN SHE IS CONSTIPATED. PT. ASSISTED WITH WIPING AND HELPED WITH REPOSITIONING IN BED. LEFT RESTING WITH CALL LIGHT IN REACH.
--- NOTE | 2020-11-21 16:41 | NUR ---
IN THE ROOM TO INFUSE ABX. PT. IS USING I.S. SHE STATES HER TOLD HER NOT TO LAY ON HER STOMACH, IT DOES NOT HELP. PT EDUCATED ON THE BENEFITS OF PRONING AND IS AGREEABLE TO PRONE AFTER DINNER. PT. IS ANXIOUS AND STATES SHE DID NOT SLEEP WELL DUE TO ANXIETY ABOUT RECOVERY. PT. REASSURED AND DISCUSSED HER CONCERNS. PT. LEFT RESTING WITH CALL LIGHT IN [facility].
--- NOTE | 2020-11-21 18:15 | NUR ---
Patient vitals, I&Os are complete. Patient ate 25% of meal but wants to finish her jello later. She drank 300 ml of water. She says she can't taste her food.
--- NOTE | 2020-11-21 20:17 | NUR ---
IN ROOM TO SL IV. PT ASSISTED TO PRONE. VS TAKEN AND ENTERED AND PT DENIES FURTHER NEEDS. CALL LIGHT IS CLOSE.
--- NOTE | 2020-11-21 22:05 | NUR ---
ASSESSMENT COMPLETED. GCS 15, A&O X4. LUNGS CLEAR IN UPPER LOBES, FINE CRACKLES IN LOWER LOBES. HEART TONES REGULAR. ABD SOFT, NONTENDER, BOWEL TONES ACTIVE. CMS INTACT. BLE HAVE 1+ EDEMA, SCATTERED BRUISING NOTED. RIGHT WRIST IV DCd, WNL.VAPOTHERM 40L/100%, SPO2 92%. ICE WATER PROVIDED. SCHEDULED MEDS PROVIDED. PRN PAIN MED GIVEN FOR GENERALIZED PAIN, PRN COUGH MEDS PROVIDED. NO OTHER NEEDS AT THIS TIME. CALL LIGHT IN REACH.
--- NOTE | 2020-11-22 00:07 | NUR ---
PT RESTING IN BED ON SIDE. VAPOTHERM 40L/100%. SPO2 91%. CALL LIGHT IN REACH.
--- NOTE | 2020-11-22 02:30 | NUR ---
PT SPO2 DROPS INTO LOW 80s, PT PLACED PRONE, SPO2 UP TO 93%. ASSESSMENT COMPLETED. GCS 15, A&O X4. BAYRON MEASURED 27.5CM. LUNGS CLEAR IN UPPER LOBES AND DIM IN LOWER LOBES. BLE EDEMA 1+. VAPOTHERM AT 40L/100%. NO OTHER NEEDS. CALL LIGHT IN REACH.
--- NOTE | 2020-11-22 02:40 | NUR ---
PT'S O2 SAT WAS 73%, PT STATES SHE JUST ROLLED OVER FROM PRONE TO BACK, INSTRUCTED PT TO DEEP BREATHE. PRIMARY RN KYLER NOT IN ROOM WITH PT.
--- NOTE | 2020-11-22 04:35 | NUR ---
IN THE GET VITALS, NATASHA EMPIED, PT ASSISTED WITH REPOSITIONING IN BED, FRESH ICE WATER REPLACED
--- NOTE | 2020-11-22 06:50 | NUR ---
SCHEDULED MEDS PROVIDED. PT REPOSITIONED. PT SPO2 DROPS TO 70% ON VAPOTHERM 40L/100%. NRB ADDED ON TOP OF NC @ 15L FOR SEVERAL MINUTES. PT PLACED IN PRONE POSITION. SPO2 AT 93%. NRB MASK REMOVED, SPO2 95% ON JUST VAPOTHERM. NO OTHER NEEDS AT THIS TIME. CALL LIGHT IN REACH.
--- NOTE | 2020-11-22 07:45 | NUR ---
REPORT RECEIVED FROM NIGHT RN AND PT. CARE RESUMED. THIS NURSE IS IN THE ROOM TO ADMIN. MEDS AND ASSESS. PT. IS PRONING. ASSISTED TO HER BACK TO TAKE MEDS AND TO EAT BREAKFAST WITH NONREBREATHER OVER VAPOTHERM. PT. 02 SAT. DROPPED TO 76%. AFTER FIVE MINUTES, O2 SAT REMAINS 80-84%. PT. ASSISTED TO SIDE POSITION WITH LITTLE IMPROVEMENT. R.T. IN THE ROOM AND NEB TX ADMIN. PT. REPORTS 6/10 SHARP RIB PAIN. PRN PAIN MEDS ADMIN. PT. LEFT RESTING WITH CALL LIGHT IN REACH AND PULSE OX ON.
--- NOTE | 2020-11-22 11:24 | NUR ---
PT. ADMIN. FLEETS ENEMA. AFTER 10 MIN. NO STOOL PASSED. PT. DIGITALLY DISIMPACTED. A LARGE AMOUNT OF IMPACTED, PAULIE COLOR STOOL REMOVED. PT. CLEANED AND GOWN CHANGED. PT. REPOSITIONED. R.T. IN THE ROOM TO PLACED PATIENT ON CPAP. PT. UPDATED ON PLAN TO TRANSFER TO CCU.
--- NOTE | 2020-11-22 13:20 | NUR ---
transferred to unit tolerated transfer placed on cpap for rest , vapotherm at bedside
--- NOTE | 2020-11-22 13:30 | NUR ---
REPORT GIVEN TO CCU RN. PT. LEFT WITH ALL BELONGINGS VIA BED TO TRANSFER TO CCU WITH RT AND CHARGE.
--- NOTE | 2020-11-22 15:48 | NUR ---
NO CHANGE IN DISCHARGE PLAN.
--- NOTE | 2020-11-22 18:07 | NUR ---
PT ON VAPOTHERM AT 40L/100% IN ORDER TO EAT DINNER
--- NOTE | 2020-11-22 20:09 | NUR ---
PT IS ALERT AND ORIENTED X4 ALL SHIFT ON CCU WHILE SHE IS AWAKE. PT HAS HAD TWO DOSES OF OXYCODONE FOR RIB PAIN. PT GIVEN 4 MG ZOFRAN FOR MILD NAUSEA. PT WELL ABLE TO USE HER CALL LIGHT. PT IN CONTACT VIA TEXT AND PHONE CALLS WITH HER FAMILY. UPDATE GIVEN TO PT'S SON SIMEON. PT DOES HAVE BLUEBERRY SIZED DARK RED BLOOD CLOTS SHE IS ABLE TO BLOW OUT OF HER NOSE, AND OR EXPECTORATE BY MOUTH. PT HAS BEDSIDE SUCCTION SET UP AND IS ABLE TO USE IT HERSELF. KAUR CATH IN PLACE, UO IS QS. PT ABLE TO EAT CHICKEN NOODLE SOUP, PUDDING, AND APPLESAUCE FOR DINNER. PT REPORTS SHE DRINKS A GALLON OF WATER A DAY, TWO CUPS OF WATER AT THE BEDSIDE TABLE. PT IS COOPERATIVE AND POLITE ALL SHIFT, AND ASKS GOOD QUESTIONS. PT IS MOSTLY ON CPAP AND WHEN OFF THAT SHE IS ON VAPOTHERM AT 40L/100%
--- NOTE | 2020-11-22 20:15 | NUR ---
PATIENT PROVIDED WITH EVENING MEDS. PATIENT ALERT AND ORIENTED. REPORTS IMPROVED PAIN CONTROL FROM PRN OXY. ABLE TO MOVE HERSELF UP IN THE BED AND TURN EASILY. CONTINUES TO COUGH UP SOME RED CHUNKY SECREATIONS. TOLERATING VAPOTHERM 40L 100% Fi02. RR 25, 02 SAT 95%. LUNG SOUNDS ARE COARSE IN YENIFER UPPER LOBES WITH DIM CRACKLES IN THE BASES. ENCOURAGE IS AND CPT. ABD IS SOFT, NO NAUSEA. KAUR CARE DONE, ADEQUATE URINE OUTPUT. MIDLINE FLUSHED EASILY. VS STABLE. PATIENT PROVIDED WITH FRESH WATER AND ASSISTED TO POSITION FOR COMFORT. FAMILY MEMBER ON THE PHONE WITH PATIENT. NO FURTHER NEEDS AT THIS TIME. CALL LIGHT IN REACH.
--- NOTE | 2020-11-22 21:32 | EKG ---
[facility] [address] [place], [place] [address] Signed Normal sinus rhythm Normal ECG No previous ECGs available Confirmed by CONCHA BHATIA DO ([id number]) on 11/22/2020 9:31:56 PM Electronically Signed By: CONCHA BHATIA DO 11/22/202131 PATIENT NAME: DEVORAH MCDERMOTT Electrocardiogram DATE OF : 56 PHYSICIAN: CONCHA BHATIA DO REPORT #: [id number] REPORT IS CONFIDENTIAL AND NOT TO BE RELEASED WITHOUT AUTHORIZATION
--- NOTE | 2020-11-22 22:00 | NUR ---
PATIENT REQUEST TO BE PLACED ON CPAP AND IS READY FOR SLEEP. ASSISTED PATIENT TO LAY ON HER RIGHT SIDE. CPAP IN PLACE. Fi02 70%.
--- NOTE | 2020-11-23 00:15 | NUR ---
PATIENT REPORTS WAKING FROM SLEEP PULLING HER CPAP OFF. O2 SATS IN THE 60'S. CPAP REPLACED. TITRATED TO 80% Fi02. PATIENT ASSISTED IN STRAIGHTENING OUT HER BEDDING, KAUR AND GOWN. PATIENT REPORTS FEELING LESS ANXIOUS NOW THAT SHE IS AWAKE. O2 SATS IMPROVED. RR 30. CALL LIGHT IN REACH.
--- NOTE | 2020-11-23 02:00 | NUR ---
PATIENT APPEARS TO BE SLEEPING SOUNDLY ON HER RIGHT SIDE. CPAP IN PLACE. TOLERATING 80% Fi02, O2 SAT 96% AND RR 25.
--- NOTE | 2020-11-23 05:15 | NUR ---
PATIENT RESTING WITH EYES CLOSED. CPAP IN PLACE. VS STABLE. KAUR EMPTIED. LABS DRAWN FROM MIDLINE, SITE RETURNED BLOOD EASILY. FLUSHED WELL. PATIENT WAKES ONLY BRIEFLY AND RETURNS TO RESTING WITH EYES CLOSED. BREATHING APPEARS EVEN AND NONLABORED. CALL LIGHT IN REACH. ALLOWED PATIENT TO REST.
--- NOTE | 2020-11-23 19:47 | NUR ---
PT HAD A GOOD SHIFT. PT REMAINS ALERT AND ORIENTED X4. PT ABLE TO TR[place] VAPOTHERM AT 40L/100% ALL DAY WHILE AWAKE. PT ABLE TO EAT ALL THREE MEALS, AND HAS GOOD PO INTAKE OF WATER. PT ABLE TO HAVE HER 7 LB DOG "IRVIN" COME IN HER TO HER ROOM FOR ABOUT 30 MINUTES, PRIOR AUTHORIZATION FROM [employer]. PT ABLE TO TALK AND TEXT WITH HER FAMILY ALL DAY. PT GIVEN 3 DOSES OF OXYCODONE FOR RIB PAIN THAT CAN PREVENT HER FROM BEING ABLE TO COUGH AND BREATH DEEPLY. PT MIDLINE IS INTACT, PT DENIES PAIN WITH FLUSH OR AT THE SITE, FLUIDS AND FLUSHES INFUSE EASILY. PT GIVEN ONE UNIT TODAY FOR LOW H&H. KAUR CATH CARES DONE, PT ABLE TO WASH HER FACE AND HANDS AND BRUSH HER OWN TEETH.
--- NOTE | 2020-11-23 20:30 | NUR ---
PATIENT PROVIDED WITH EVENING MEDS. IV ROCEPHINE STARTED, MIDLINE RETURNS BLOOD. FLUSHES EASILY. PATIENT REPORTS FEELING LESS SOB TODAY. NASAL SPRAY PROVIDED FOR COMOFRT. PATIENT HAS HAD LARGE CHUNKS OF SECREATIONS OUT OF HER NOSE AND THRAOT. CONTINUES TO HAVE PRODUCTIVE STRONG COUGH. CURRENTLY ON VAPOTHERM 40L 100% O2 SATS 88-90% AND RR 26. KAUR EMPTIED FOR 1100 MLS CLEAR YELLOW URINE. PATIENT HAS HAD DECENT APPETITE AND ORAL INTAKE TO DAY. ENCOURAGED PATIENT TO LAY ON HER SIDE. WILL SWITCH TO CPAP WHEN READY FOR SLEEP.
--- NOTE | 2020-11-23 22:23 | NUR ---
PRN PAIN MEDS PROVIDED. PATIENT TURNED TO RIGHT SIDE. CPAP PLACED ON PATIENT. PRESSURE 10, 80% Fi02. LIGHTS DIMMED PER REQUEST. CALL LIGHT IN REACH.
--- NOTE | 2020-11-24 00:15 | NUR ---
PATIENT APPEARS TO BE TOLERATING CPAP WELL. TURNED TO RIGHT SIDE. CPAP 10, 80% Fi02. RR 20'S AND O2 SATS >90%. PATIENT RESTING WITH EYES CLOSED. VS STABLE.
--- NOTE | 2020-11-24 03:00 | NUR ---
PATIENT ASSISTED TO REPOSITION CPAP MASK WHICH WAS LOOSE. PATIENT REPORTS BEING COMOFRTABLE AND SLEEPING WELL. ASSISTED TO REPOSITION FOR COMFORT. VS STABLE. CALL LIGHT IN REACH.
--- NOTE | 2020-11-24 08:15 | NUR ---
upon enterning roon, patient is on cpap at 80% fio2 and pressure of 10. VAPOTHERM AT 40 LITERS AND 100% FIO2 APPLIED PATIENT NEEDS PO MEDICATIONS AND BREAKFAST. PATIENT ON VAPOTHERM FOR APPROX 5 MIN RR-40, WITH INCREASED WOB AND SAT TO 66. INCREASED ECTOPY ALSO NOTED, HR TO 120. CPAP REAPPLIED AT 100% FIO2. BREAKFAST HELD. MEDICATIONS GIVEN.
--- NOTE | 2020-11-24 12:30 | NUR ---
PT WENT TO CT AT ABOUT 1145. RN HAWA AND EDILBERTO, RESP THERAPY VAN WENT WITH PT. CT PROCESS WENT WELL. PT BACK TO HER ROOM BY 1210. PT'S SPOUSE IS AT THE BEDSIDE, ELZBIETA, HE REMAINS IN THE ROOM.
--- NOTE | 2020-11-24 13:50 | NUR ---
THREE RINGS AND A NECKLACE REMOVED FROM PT AND GIVEN TO FAMILY.
--- NOTE | 2020-11-24 14:40 | NUR ---
INTUBATION - 1400 - FLORA IS ENTRY WRITER, EDILBERTO AND JIMMIE ARE RN'S, AND VAN IS RT IN THE ROOM. 50 MG KETAMINE, 10 OF ROCURONIUM, AND 10 OF PROPOFOL PUSHED FOR SEDATION AND PARILYTIC, UNSUCESSFUL AT PT'S IV WAS NOT PATIENT. 1404 - 5 MG PROPOFOL, 50 MG KETAMINE, AND 10OF ROCURONIUM PUSHED FIR SEDATIUN AND PARILYTIC, IV IS PATIENT THIS TIME. 1406 - SIZE 7 TUBE PLACED AT 21 AT THE TEETH, ENTUBATION IS SUCESSFUL. 1407 - PT TRENTON TUBE WELL, VITALS ARE WNL. 1415 - MIDAZOLAM DRIP STARTED AT 3 MG PER/HOUR FOR CONTINUED SEDATION 1424 - OG TUBE SUCESSFULLY PLACED 50ML AT THE TEETH.
--- NOTE | 2020-11-24 15:15 | NUR ---
PT RESTING QUIETLY AT THIS TIME TOLLERATING THE VENT, VITALS ARE WNL
--- NOTE | 2020-11-24 15:32 | NUR ---
SUMMARY NOTE FOR SHIFT PT ALERT AND ORIENTED X4 ALL SHIFT UP UNTIL ENTUBATION AT 1406. PT IS COOPERATIVE AND AGREABLE. 3 FAMILY MEMBERS IN THE ROOM FOR EMOTIONAL SUPPORT. DECISION MADE EARLY IN THE SHIFT TO ENTUBATE AND SHIP PT TO A HIGHER LEVEL OF CARE, FAMILY AND PT ARE AWARE AND ARE AGREABLE TO THIS PLAN. PT NOT ABLE TO TRENTON BEING OFF THE CPAP AT ALL. PT NOT ABLE TO EAT BREAKFAST. PT GIVEN SIPS OF WATER FOR COMFORT. PT GIVEN PAIN MEDICATION 2 TIMES DURING THE DAY FOR RIB PAIN. PT ALSO GIVEN SERIQUIL FOR ANXIETY. ENTUBATION WENT WELL. [facility] ABLE TO TRANSPORT PT OUT AT ABOUT 1525. URINE OUTPUT ALL SHIFT HAS BEEN GOOD.
--- NOTE | 2020-11-24 15:42 | NUR ---
PT RASS SCORE IS -2 AT THIS TIME. PT HAS RESTRAINTS IN PLACE BILAT ARMS TO PROTECT ET TUBE, RESTRAINTS ASSESSED FOR PT SAFETY AND COMFORT.
== END 2020-11-24 14:50 | DRG 208 ==
LOC: ED 14:15 → MS 18:47 → CCU 11-22 13:20
PROVIDERS: ADMIT Internal Medicine; ATTEND Internal Medicine
PROC: 8E0ZXY6 Isolation (ICD-10-PCS; 2020-11-16)
PROC: 3E0333Z Introduction of Anti-inflammatory into Peripheral Vein, Percutaneous Approach (ICD-10-PCS; 2020-11-16)
PROC: XW033E5 Introduction of Remdesivir Anti-infective into Peripheral Vein, Percutaneous Approach, New Technology Group 5 (ICD-10-PCS; 2020-11-16)
PROC: 0BH17EZ Insertion of Endotracheal Airway into Trachea, Via Natural or Artificial Opening (ICD-10-PCS; principal; 2020-11-24)
PROC: 5A1935Z Respiratory Ventilation, Less than 24 Consecutive Hours (ICD-10-PCS; 2020-11-24)
DX: U07.1 COVID-19 (principal); J12.82 Pneumonia due to coronavirus disease 2019; J96.01 Acute respiratory failure with hypoxia; I26.99 Other pulmonary embolism without acute cor pulmonale; E86.0 Dehydration; I95.9 Hypotension, unspecified; D46.9 Myelodysplastic syndrome, unspecified; E03.9 Hypothyroidism, unspecified; D50.9 Iron deficiency anemia, unspecified; N18.9 Chronic kidney disease, unspecified; Z98.84 Bariatric surgery status; Z90.89 Acquired absence of other organs; Z88.0 Allergy status to penicillin; Z79.899 Other long term (current) drug therapy; Z98.890 Other specified postprocedural states
CPT/HCPCS: 31500; 36600; 71045; 71260; 80048; 80053; 81001; 82803; 83605; 83735; 85007; 85025; 86850; 86900; 86901; 86922; 87040; 87070; 87077; 87205; 93005; 93010; 94002; 94640; 94660; 94760; 94762; 94799; 96365; 96375; 99285-25; A9270; J0696; J1100; J1650; J1956; J2405; J2704; J7050; J7121

== ENCOUNTER 2020-12-20 07:13 | Inpatient (IN) | payer MEDICARE, OTHER ==
[~2020-12-20] VITALS: Ht 170.2 cm; Wt 73.6 kg
[~2020-12-20 07:13] MED LIST changes: -ALENDRONATE SOD70 MG PO; +EUTHYROX125 MCG PO; -FUROSEMIDE40 MG PO; -POTASSIUM CHLO20 ME1 PO; -VITAMIN D3125 MC1 PO; +VITAMIN D350 MC3 PO
--- OUTSIDE RECORDS SUMMARY | 2020-12-20 07:20 | XMS ---
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 - COVID-19 Positive Lab Results CARE PROVIDERS JUAN CARLOS PITTSiatrtessa Serrano PHONE: [phone] ADRIAN BLANCHARD Internal Medicine Current PHONE: [phone] HUAN SMILEY Nurse Practitioner Current PHONE: [phone] BRYAN FOLEY Nurse Practitioner: Family Current PHONE: Unknown PAMELA URIBE Internal Medicine Current PHONE: [phone] CHANDLER DAS [facility] Current PHONE: [phone] MARCELL ARIAS Nurse Practitioner Current PHONE: [phone] NOHEMY UGALDE I. Physician High [employer]im[employer] Current PHONE: Unknown GERONIMO POSADAS Nurse Practitioner: Family 11/18/2020-Current PHONE: [phone] [facility] Current [facility] [phone] [facility]: [phone] Lazaro has no Care Guidelines for this patient. Care History Medical/Surgical 08/02/2019 [facility] - Patient is currently established with [facility]. If patient is seen in the ED during business hours. Please contact CHWs at [facility]. - Care Recommendation: If this patient has had 5 or more Emergency Department visits in the last 12 months.\T\nbsp; Patient will require education on the scope and purpose of the ED as an acute care provider not a Primary Care Provider and should not be utilized for chronic conditions.\T\nbsp; These are guidelines and the provider should exercise clinical judgment when providing care. 08/02/2019 [facility] Patient came into [facility] for diagnosis; assessed by VIOLA Degroot, and sent to ED for further evaluation. E.D. VISIT COUNT (12 MO.) [address] [facility] TOTAL 3 NOTE: Visits indicate total known visits. ED/UCC VISIT TRACKING (12 MO.) 12/20/2020 07:14 [facility] TYPE: Emergency COMPLAINT: - POSS TACHYCARDIA 11/16/2020 14:15 [facility] TYPE: Emergency COMPLAINT: - WEAKNESS 11/14/2020 14:32 [facility] [place] TYPE: Emergency COMPLAINT: - FLU SYMPTOMS, HEADACHE, DIZZY, NO TASTE/SMELL DIAGNOSES: - Other halfway (current) drug therapy - Anemia, unspecified - COVID-19 - Hypothyroidism, unspecified - Allergy status to penicillin INPATIENT VISIT TRACKING (12 MO.) 11/24/2020 18:11 [facility] [place] TYPE: Neuro Surgery DIAGNOSES: - Bronchiectasis, uncomplicated - Shock, unspecified - COVID-19 - Enterocolitis due to Clostridium difficile, not specified as recurrent - Bariatric surgery status - Hypothyroidism, unspecified - Unspecified severe protein-calorie malnutrition - Contusion of abdominal wall, initial encounter - Unspecified bacterial pneumonia - Hyperosmolality and hypernatremia - Other injury of unspecified body region, initial encounter - Acute respiratory distress syndrome - Other pulmonary embolism without acute cor pulmonale - Acute respiratory failure with hypoxia - Pneumonia due to coronavirus disease 2018 11/16/2020 18:[address] [facility] [place] TYPE: Critical Care COMPLAINT: - COVID PNEUMONIA DIAGNOSES: - Myelodysplastic syndrome, unspecified - Acute respiratory failure with hypoxia - Chronic kidney disease, unspecified - Other halfway (current) drug therapy - Other pulmonary embolism without acute cor pulmonale - Acquired absence of other organs - Myelodysplastic syndrome, unspecified - Hypotension, unspecified - Anemia in chronic kidney disease - Hypotension, unspecified - Hypothyroidism, unspecified - Acute respiratory failure with hypoxia - Other pulmonary embolism without acute cor pulmonale - Dehydration - Bronchiectasis, uncomplicated - Hemoptysis - Iron deficiency anemia, unspecified - COVID-19 - Hypothyroidism, unspecified - Other halfway (current) drug therapy - Acquired absence of both cervix and uterus - Allergy status to penicillin - Dehydration - Chronic kidney disease, unspecified - Iron deficiency anemia, unspecified - Other specified postprocedural states - Allergy status to penicillin - Secondary pulmonary arterial hypertension - Acquired absence of other organs - Bariatric surgery status - Other specified postprocedural states - Bariatric surgery status - Intestinal malabsorption, unspecified [email or web address]
[2020-12-20] MEDS ORDERED: VITAMIN C500 M5 PO (07:32)
[2020-12-20] MEDS ORDERED: FOSAMAX70 MG PO (07:33)
[2020-12-20] MEDS ORDERED: ELIQUIS5 MG PO (07:34)
[2020-12-20] MEDS ORDERED: PULMICORT FLEX90 MCG INH (07:34)
[2020-12-20] MEDS ORDERED: VANCOMYCIN HCL125 MG PO (07:35)
[2020-12-20] MEDS ORDERED: DOXEPIN HCL100 MG PO (07:36)
[2020-12-20] MEDS ORDERED: ALENDRONATE SOD70 MG PO (12:11)
[2020-12-20] MEDS ORDERED: POTASSIUM CHLO20 ME1 PO (12:12)
[2020-12-20] MEDS ORDERED: FUROSEMIDE40 MG PO (12:12)
--- NOTE | 2020-12-21 06:04 | CONS ---
[facility] [address] [place], [place] [address] Signed DATE OF CONSULTATION: 12/20/2020 CHIEF COMPLAINT: Right thigh wound infection. HISTORY OF PRESENT ILLNESS: Saba is a 60-year-old female, who unfortunately was in our hospital a few weeks ago with rather significant COVID disease. She was sent down to [place], [place] for ongoing tertiary level care. She had to be intubated and placed on anti coagulation due to her blood clotting. She had a hematoma just above the medial left ankle that was drained as well as one in the right proximal thigh. The right thigh wound actually was fairly large. Three-fourth of that wound was closed with interrupted nylon sutures and a small wound VAC was placed at the top. She is back in [place], [place] now at an extended care facility. She started to develop fevers and tachycardia and was having pain in the right groin. She was brought back to our local hospital. She has been admitted to our internal medicine service, admitted to our ICU. She is septic and has been in atrial fibrillation with tachycardia. Apparently, there was pus coming out from around the wound VAC and therefore, I was asked to see her as a general surgeon on-call. PAST MEDICAL HISTORY: Anemia, GI bleed, coma in 2010, hypothyroidism, now on O2 nasal cannula 2 L per minute. PAST SURGICAL HISTORY: Gastric bypass surgery, tonsillectomy, right lower extremity varicose vein stripping. SOCIAL HISTORY: Her is Harpreet at [phone]. They prefer the [facility]. Lesli Posadas is her nurse practitioner in [place], [place]. FAMILY HISTORY: None. REVIEW OF SYSTEMS: She had 10 systems reviewed and nothing new to add. ALLERGIES: Penicillin causes anaphylaxis. MEDICATIONS: Eliquis, budesonide, vancomycin, doxepin, liothyronine, vitamin C, vitamin D, vitamin B12, iron, albuterol, folate, levothyroxine, and Fosamax. PHYSICAL EXAMINATION: Electronically Signed By: SMITA AYON MD 12/21/20 0604 PATIENT NAME: SABA MCDERMOTT CONSULTATION DATE OF : 56 REPORT #: [id number] PHYSICIAN: SMITA AYON MD PCP: GERONIMO POSADAS REPORT IS CONFIDENTIAL AND NOT TO BE RELEASED WITHOUT AUTHORIZATION [facility] [address] [place], [place] [address] Signed VITAL SIGNS: Her blood pressure is 97/65, her heart rate 106, it is atrial fibrillation, respiratory rate 27, temperature is 98.3. She has 100% on O2 nasal cannula. She is 5 feet 7 inches and 73 kg. GENERAL: Saba is a 60-year-old, elderly, ill-appearing woman lying supine in her ICU bed. Her nurses are with her as well. We unwrapped the left lower extremity and she has a wound probably 8 cm in diameter that has a full better granulation tissue just above the medial ankle. That will heal just fine with routine wound care per our wound care nurse. The right groin clearly had some pus and a significant amount of erythema. The wound VAC was taken down and discarded. A long cotton-tipped applicator was passed underneath her skin for at least 8 cm if not 10 or 12. We went all the way down the medial thigh and out towards the top of her thigh as well. There was liquid pus come out from underneath. The nylon sutures were therefore all removed at the bedside and discarded. The skin was opened up and all that wound was opened in full of fibrinous exudate and liquid pus. We are waiting for full strength Dakin's solution and so in the meantime, we packed it with normal saline soaked gauze and covered that with a dry ABD. The surrounding skin is quite erythematous, picked on the medial side where the fluid has been going down her leg. That will be treated with the Bactroban ointment. LABORATORY DATA: Her white blood cell count 29.4, hemoglobin 10.3, neutrophils 89. BUN 17, creatinine 1.17, glucose 102. Urinalysis was not particularly concerning. Lactic acid 1. Albumin is 1.9. Her wound cultures are pending. RADIOGRAPHIC STUDIES: Chest x-ray shows some interstitial lung disease from the COVID virus. ASSESSMENT AND PLAN: Saba is a 60-year-old female, who just got over rather significant COVID disease. She also had C diff colitis, she is on day 8 of 10 of p.o. vancomycin. However, she has developed rather significant right groin proximal thigh infection. That wound has been completely open and we are going to pack it with full strength Dakin's solution, soaked gauze three times a day and we will use Bactroban ointment on the surrounding skin. She may need her antibiotic coverage expanded as well. I have discussed this with Saba, Dr. Burgos and her . Smita Ayon MD ALB/MODL /[id number] Electronically Signed By: SMITA AYON MD 12/21/20 0604 PATIENT NAME: SABA MCDERMOTT CONSULTATION DATE OF : 56 REPORT #: [id number] PHYSICIAN: SMITA AYON MD PCP: GERONIMO POSADAS REPORT IS CONFIDENTIAL AND NOT TO BE RELEASED WITHOUT AUTHORIZATION [address] [place], [place] [address] Signed cc: Jyothi Burgos MD Patient chart NORM Kahn Copies: JYOTHI BURGOS MD, TRUDY ARNP ~ Electronically Signed By: SMITA AYON MD 12/21/20 0604 PATIENT NAME: SABA MCDERMOTT CONSULTATION DATE OF : 56 REPORT #: [id number] PHYSICIAN: SMITA AYON MD PCP: GERONIMO POSADAS REPORT IS CONFIDENTIAL AND NOT TO BE RELEASED WITHOUT AUTHORIZATION
--- NOTE | 2020-12-23 13:39 | EKG ---
[facility] [address] [place] [address] Signed Sinus tachycardia with premature atrial complexes Otherwise normal ECG When compared with ECG of 21-NOV-2020 05:36, premature atrial complexes are now present Confirmed by JYOTHI BURGOS MD ([id number]) on 12/23/2020 1:38:58 PM Electronically Signed By: JYOTHI BURGOS MD 12/23/20 1339 PATIENT NAME: DEVORAH MCDERMOTT Electrocardiogram DATE OF : 56 PHYSICIAN: JYTOHI BURGOS MD REPORT #: [id number] REPORT IS CONFIDENTIAL AND NOT TO BE RELEASED WITHOUT AUTHORIZATION
[2020-12-25] MEDS ORDERED: DIGITEK125 MCG PO (10:01)
[2020-12-25] MEDS ORDERED: METRONIDAZOLE500 MG PO (10:03)
[2020-12-25] MEDS ORDERED: VANCOMYCIN HCL125 MG PO (10:04)
[2020-12-25] MEDS ORDERED: CEFPODOXIME PR200 MG PO (10:05)
== END 2020-12-25 13:00 | disposition home or self-care (01) | DRG 871 ==
LOC: ED 07:13 → CCU 10:53 → MS 10:53
PROVIDERS: ADMIT Internal Medicine; ATTEND Internal Medicine
PROC: 0H9HXZZ Drainage of Right Upper Leg Skin, External Approach (ICD-10-PCS; principal; 2020-12-20)
DX: A40.0 Sepsis due to streptococcus, group A (principal); J96.21 Acute and chronic respiratory failure with hypoxia; L03.115 Cellulitis of right lower limb; A04.72 Enterocolitis due to Clostridium difficile, not specified as recurrent; E03.9 Hypothyroidism, unspecified; I48.0 Paroxysmal atrial fibrillation; F51.04 Psychophysiologic insomnia; Z98.84 Bariatric surgery status; Z90.89 Acquired absence of other organs; Z98.890 Other specified postprocedural states; Z88.0 Allergy status to penicillin; Z86.16 Personal history of COVID-19; Z79.83 Long term (current) use of bisphosphonates; Z79.899 Other long term (current) drug therapy; Z79.01 Long term (current) use of anticoagulants; Z79.51 Long term (current) use of inhaled steroids; Z86.711 Personal history of pulmonary embolism
CPT/HCPCS: 51702; 71045; 80053; 80162; 80202; 81001; 83605; 83735; 84484; 85007; 85025; 87040; 87070; 87075; 87076; 87077; 87205; 93005; 93010; 94640; 94668; 94760; 94761; 97110; 97116; 97163; 97166; 97530; 99285-25; J1160; J1650; J3370; J3475; J3490; J7030; J7060; J7121

== ENCOUNTER 2024-08-10 08:51 | Emergency (ER) | payer MEDICARE, OTHER ==
[~2024-08-10] VITALS: Ht 167.6 cm; Wt 48.0 kg
[~2024-08-10 08:51] MED LIST changes: +ALENDRONATE SOD70 MG PO; +CALCIUM CITRAT200 MG PO; +CEFPODOXIME PR200 MG PO; +COPPER2 M1 PO; +DIGITEK125 MCG PO; +ELIQUIS5 MG PO; +FOSAMAX70 MG PO; +FUROSEMIDE40 MG PO; +MAGOX 400400 MG PO; +METRONIDAZOLE500 MG PO; +POTASSIUM CHLO20 ME1 PO; +PROLIA60 MG/1 ML SUB-Q; +RESTASIS1 DROP OU; +SLEEP AID50 MG PO; +SUPER B-COMPL400 MCG PO; +TRAZODONE HCL50 MG PO; +VANCOMYCIN HCL125 MG PO; -VITAMIN B-121000 MC3 PO; +VITAMIN B122500 MCG PO; +VITAMIN C500 M3 PO; +VITAMIN C500 M5 PO; -VITAMIN C500 MG PO; +VITAMIN D3125 MC2 PO; -VITAMIN D350 MC3 PO; +ZINC50 MG PO
[2024-08-10 10:11] LABS: BASOPHILS 0.4 % (0.1-1.2); EOSINOPHILS 0.4 % (0.7-5.8); HEMATOCRIT 25.2 % (34.1-44.9); HEMOGLOBIN 8.2 g/dL (11.2-15.7); LYMPHOCYTES 18.8 % (19.3-51.7); MCH 30.4 PG (25.6-32.2); MCHC 32.5 g/dL (32.2-35.5); MCV 93.3 fL (79.4-94.8); MONOCYTES 14.1 % (4.7-12.5); PLATELET COUNT 174 K/uL (182-369)
[2024-08-10 10:32] LABS: INFLUENZA B NAA NEGATIVE (NEGATIVE); RESPIRATORY SYNCYTIAL VIR NAA NEGATIVE (NEGATIVE)
[2024-08-10 10:36] LABS: ALBUMIN 1.5 g/dL (3.4-5.0); ALCOHOL, MEDICAL <3 ng/dL (<3); ALKALINE PHOSPHATASE 136 U/L (46-116); ALT (SGPT) 49 U/L (14-59); ANION GAP 14.3 (7-21); AST (SGOT) 33 U/L (15-37); BILIRUBIN, TOTAL 0.5 mg/dL (0.2-1.0); CALCIUM 7.8 mg/dL (8.5-10.1); CARBON DIOXIDE 20 mmol/L (21-32); CHLORIDE 114 mmol/L (98-107); CREATININE, SERUM 1.91 mg/dL (0.55-1.02); GLOMERULAR FILTRATION RATE,EST 29 mL/min (>60); POTASSIUM 4.3 mmol/L (3.5-5.1); PROTEIN, TOTAL 4.5 g/dL (6.4-8.2); UREA NITROGEN 30 mg/dL (7-18)
[2024-08-10 10:41] LABS: BILIRUBIN, URINE NEGATIVE (negative); BLOOD/HGB, URINE TRACE-I (Negative); KETONE, URINE NEGATIVE (Negative); LEUK ESTERASE, URINE SMALL (negative); NITRITE, URINE NEGATIVE (negative)
[2024-08-10 10:49] LABS: BACTERIA, URINE 4+ /hpf (negative); CASTS, URINE NONE SEEN \\lpf; COLLECTION TYPE, URINE CATH; CRYSTALS, URINE NONE SEEN (0-1+); EPITHELIAL CELLS, URINE 0 /lpf (0-1+); RED BLOOD CELLS, URINE 0-1 /hpf (0-5); REFLEX CULTURE, URINE Yes (No); WHITE BLOOD CELLS, URINE >50 /HPF (0-5)
[2024-08-10 11:04] LABS: AMPHETAMINES, URINE NEGATIVE (NEGATIVE); BARBITURATES, URINE NEGATIVE (NEGATIVE); BENZODIAZEPINE, URINE NEGATIVE (NEGATIVE); BUPRENORPHINE, URINE NEGATIVE (NEGATIVE); CANNABINOID, URINE POSITIVE (NEGATIVE); COCAINE, URINE NEGATIVE (NEGATIVE); ECSTASY, URINE POSITIVE (NEGATIVE); FENTANYL, URINE NEGATIVE (NEGATIVE); METHADONE, URINE NEGATIVE (NEGATIVE); OPIATES, URINE NEGATIVE (NEGATIVE); OXYCODONE, URINE NEGATIVE (NEGATIVE); PHENCYCLIDINE, URINE NEGATIVE (NEGATIVE)
[2024-08-10] MEDS ORDERED: DIATRIZOATE MEGLU/DIATRIZO SOD 15 ML BTL PO ONE ×2 (12:15→14:30)
[2024-08-10 19:28] VITALS: BP 81/65
== END 2024-08-10 19:37 | disposition home or self-care (01) ==
LOC: ED 08:51
PROVIDERS: Emergency Medicine
DX: K59.00 Constipation, unspecified (principal); E46 Unspecified protein-calorie malnutrition; Z88.0 Allergy status to penicillin; Z79.890 Hormone replacement therapy; Z79.899 Other long term (current) drug therapy
CPT/HCPCS: 36415; 51701; 71045; 74176; 76705; 80053; 80307; 81001; 83605; 83690; 84484; 85025; 87088; 87502; 99284-25; G0480; U0002

== ENCOUNTER 2024-11-15 11:49 | Emergency (ER) | payer MEDICARE, OTHER ==
[~2024-11-15] VITALS: Ht 167.6 cm; Wt 53.0 kg
[2024-11-15] MEDS ORDERED: LOPERAMIDE2 MG PO (11:59)
[2024-11-15] MEDS ORDERED: DIPHENOXYLATE-1 EACH PO (12:01)
[2024-11-15] MEDS ORDERED: SODIUM CHLORIDE 0.9% 2,000 ML IV PRN (12:15)
[2024-11-15 12:34] LABS: BASOPHILS 0.2 % (0.1-1.2); EOSINOPHILS 0.1 % (0.7-5.8); LYMPHOCYTES 9.0 % (19.3-51.7); MCH 30.3 PG (25.6-32.2); MCHC 31.9 g/dL (32.2-35.5); MCV 95.1 fL (79.4-94.8); MONOCYTES 11.1 % (4.7-12.5); NEUTROPHILS 78.5 % (34.0-71.1); RBC 2.84 M/uL (3.93-5.22)
[2024-11-15] MEDS ORDERED: LIDOCAINE 2% VISCOUS 6 ML SYR TOP ONE (12:45)
[2024-11-15 12:55] LABS: ALT (SGPT) 106.0 U/L (14-59); AST (SGOT) 270.0 U/L (15-37); GLOMERULAR FILTRATION RATE,EST 20.0 mL/min (>60); PROTEIN, TOTAL 4.1 g/dL (6.4-8.2); UREA NITROGEN 43.0 mg/dL (7-18)
[2024-11-15 13:05] LABS: BLOOD/HGB, URINE SMALL (Negative); KETONE, URINE NEGATIVE (Negative); LEUK ESTERASE, URINE MODERATE (negative); NITRITE, URINE POSITIVE (negative)
[2024-11-15 13:13] LABS: INR 2.89 (0.80-1.30); PROTIME 29.4 Sec (11.2-14.2)
[2024-11-15 13:17] LABS: BACTERIA, URINE 1+ /hpf (negative); CASTS, URINE NONE SEEN \\lpf; CRYSTALS, URINE NONE SEEN (0-1+); EPITHELIAL CELLS, URINE SQUAMOUS 3+ /lpf (0-1+); REFLEX CULTURE, URINE No (No)
[2024-11-15 13:24] LABS: LACTIC ACID, BLOOD 5.6 mmol/L (0.4-2.0)
[2024-11-15] MEDS ORDERED: SODIUM CHLORIDE 0.9% 1,000 ML IV PRN (13:30)
[2024-11-15] MEDS ORDERED: NOREPINEPHRINE BITARTRATE 250 ML IV SCH (13:30)
[2024-11-15 13:38] LABS: ABO O; RH POSITIVE
[2024-11-15 13:39] LABS: ANTIBODY SCREEN NEGATIVE
[2024-11-15 14:55] LABS: LACTIC ACID, BLOOD 4.4 mmol/L (0.4-2.0)
[2024-11-15 19:11] LABS: BASOPHILS 0.1 % (0.1-1.2); EOSINOPHILS 0 % (0.7-5.8); LYMPHOCYTES 3.2 % (19.3-51.7); MCH 30.3 PG (25.6-32.2); MCHC 33.0 g/dL (32.2-35.5); MCV 91.9 fL (79.4-94.8); MONOCYTES 6.5 % (4.7-12.5); NEUTROPHILS 89.4 % (34.0-71.1); RBC 2.84 M/uL (3.93-5.22)
[2024-11-15 21:00] VITALS: BP 107/66
== END 2024-11-15 21:00 | disposition short-term general hospital (02) ==
LOC: ED 11:49
PROVIDERS: Emergency Medicine
DX: A41.9 Sepsis, unspecified organism (principal); N39.0 Urinary tract infection, site not specified; R65.21 Severe sepsis with septic shock; N17.9 Acute kidney failure, unspecified; E46 Unspecified protein-calorie malnutrition; S22.43XA Multiple fractures of ribs, bilateral, initial encounter for closed fracture; D68.59 Other primary thrombophilia; E83.51 Hypocalcemia; E03.9 Hypothyroidism, unspecified; Z98.84 Bariatric surgery status; Z88.0 Allergy status to penicillin; Z79.890 Hormone replacement therapy; Z79.51 Long term (current) use of inhaled steroids; Z79.899 Other long term (current) drug therapy; W18.30XA Fall on same level, unspecified, initial encounter
CPT/HCPCS: 36415; 36556; 51702; 70450; 71045; 71250; 74176; 80053; 81001; 83605; 85025; 85610; 85730; 86850; 86900; 86901; 87040; 87186; 96365; 96375; 96376; 99291; A4311; C1751; J0696; J7030